=== PATIENT | female | born 1965 | race Caucasian/White ===

== ENCOUNTER 2017-08-28 07:47 | Inpatient (IN) | payer OTHER ==
--- NOTE | 2017-08-25 14:57 | PREOP HP ---
DATE OF SERVICE: 08/28/2017 HISTORY OF PRESENT ILLNESS: The patient is a pleasant 52-year-old woman who has undergone 2 previous surgeries on her lumbar spine, both at L5-S1 on the right. The first was in 05/2016 and the second was a reoperation in 07/2016. Following the second operation, she did well for a few months. Then in 10/2016, she began developing recurrent back pain and right leg pain. She has failed to improve with conservative measures. PAST MEDICAL HISTORY: Hypertension, cervical cancer, chest pain, GERD, hyperlipidemia, fibromyalgia, depression, anxiety, migraines, palpitations. PAST SURGICAL HISTORY: Appendectomy; cholecystectomy; hysterectomy; hemorrhoidectomy; microdiskectomy L5-S1 on the right, 05/2016; microdiskectomy L5-S1 reop on the right, 07/2016. FAMILY HISTORY: Bleeding problems, cancer, diabetes, heart disease, hypertension, migraine headaches. SOCIAL HISTORY: She is employed as a quality control manager. Single. Does not smoke. Drinks alcohol 1-2 times per year. ALLERGIES: To COMPAZINE. CURRENT MEDICATIONS: Clonazepam, Cymbalta, estradiol, lisinopril, Yesenia, Flexeril and Motrin. REVIEW OF SYSTEMS: A 12-point review of systems was obtained and is noncontributory except that mentioned above. PHYSICAL EXAMINATION: NEUROSURGERY EXAMINATION: GENERAL APPEARANCE: Alert, pleasant, in no acute distress. HEAD: Normocephalic and atraumatic. SKIN: Warm and dry. BACK: The incision is well healed. MUSCULOSKELETAL: Lumbar paraspinal muscle bulk is normal, restricted range of motion of lumbar spine, significant tenderness of lower lumbar spine bilaterally. Normal range of motion of the lower extremities bilaterally. EXTREMITIES: No clubbing, cyanosis, or edema. NEUROLOGIC: Alert and oriented x 3, normal recent and remote memory, strength 5/5 in bilateral lower extremities, markedly positive straight leg raising on the right with back and buttock, posterior thigh and leg pain relieved by the Lasegue's maneuver. Straight leg raising on the left is negative. There was decreased sensation in the posterior aspect of her right ankle to light touch. She had normal reflexes in her lower extremities. IMAGING: Reviewed. I reviewed a lumbar myelogram and post-myelogram CT scan. At L5-S1, there is broad-based disk bulging, which is centered to the right and images are consistent with recurrent disk herniation at this level with posterior displacement and compression of the S1 nerve root on the right side. PLAN: She does have pain that remains severe. She has a recurrent disk herniation L5-S1 on the right. She has undergone 2 previous lumbar surgeries at this level. At this point, she needs reoperation lumbar diskectomy with a wide decompression. It should be followup with posterior instrumentation and posterolateral fusion as well as anterior diskectomy and fusion with placement of interbody cage. I discussed with her the surgery and the risks involved as well as the expected postoperative course and she would like to go ahead. We will make the arrangements. JOSSELIN SANDHU MD DR: DUGLAS/ct JOB#: [id number] / [id number]
[~2017-08-28] VITALS: Ht 170.2 cm; Wt 70.8 kg
[2017-08-28] VITALS (8 sets, daily range): BP systolic 104–122; BP diastolic 59–76
[~2017-08-28 07:47] MED LIST: BACITRACIN 50,000 UNIT in IV NORMAL SALINE 1000ML BAG 1,000 ML IRR ONE; BUPIVAC MPF-EPI 0.5%-1:200000 10 ML VIAL. ONE; CHOL500016 PO; CLON0.5T PO; DOCU-109 PO; FLUT9.9S NS; GELATIN SPONGE SIZE 100. ONE; HYDR-2762 PO; HYDROmorphone 2 MG/ML VIAL IV PRN; IV RINGERS,LACTATED 1000ML 1,000 ML IV SCH; KETOROLAC 60 MG/2 ML INJ FOR OR. ONE; LIDOCAINE 1% PF 2 ML VIAL. ID PRN; LINA145C PO; LISI-334 PO; METH-38 PO; METH4TAB2 PO; MORPHINE SULFATE 2 MG/ML DISP.SYRIN. IV PRN; NAPR220C4 PO; ONDANSETRON PF 4 MG/2 ML VIAL. IV PRN; PROM12.553 RC; THROMBIN TOPICAL 20,000 UNIT SPRAY.SYRN KIT TP ONE; fentaNYL PF VIAL 100 MCG/2 ML VIAL IV PRN
[2017-08-28] MEDS ORDERED: VANCOMYCIN 1GM IVPB FOR OMNI 250 ML IV PRN (08:00)
[2017-08-28] MEDS ORDERED: SCOPOLAMINE 1.5MG PATCH. TD ONE ×2 (09:38→10:00)
[2017-08-28] MEDS ORDERED: LIDOCAINE 2% PF Vial for OR 5 ML VIAL. ONE (10:40)
[2017-08-28] MEDS ORDERED: DEXAMETHASONE SOD PHOS 20 MG/5 ML VIAL. ONE (10:40)
[2017-08-28] MEDS ORDERED: PROPOFOL 20 ML IV ONE (10:40)
[2017-08-28] MEDS ORDERED: ONDANSETRON PF 4 MG/2 ML VIAL. ONE (10:40)
[2017-08-28] MEDS ORDERED: PROPOFOL 50 ML IV ONE ×3 (10:57→16:32)
[2017-08-28] MEDS ORDERED: REMIFENTANIL 2 MG VIAL. IV ONE ×2 (10:59→14:50)
[2017-08-28] MEDS ORDERED: 0.9 % SODIUM CHLORIDE 50 ML VIAL. IJ ONE ×2 (10:59→14:51)
[2017-08-28] MEDS ORDERED: fentaNYL PF VIAL 100 MCG/2 ML VIAL ONE (11:00)
[2017-08-28] MEDS ORDERED: MIDAZOLAM HCL/PF 2 MG/2 ML VIAL. ONE (11:00)
[2017-08-28] MEDS ORDERED: FAMOTIDINE 20 MG/2 ML VIAL ONE (11:00)
[2017-08-28] MEDS ORDERED: DESFLURANE > 120 MINUTES IH ONE (11:56)
[2017-08-28] MEDS ORDERED: ePHEDrine PF IN SALINE 50 MG/5 ML DISP.SYRIN IV ONE (12:10)
--- NOTE | 2017-08-28 12:37 | RAD ---
Indication anticipated operative intervention. In anticipation of surgery targeted to the lumbar spine axial images were obtained. Images were reformatted in the coronal and sagittal planes. This cuts were also obtained. Note is made of an MRI examination 10/04/2016. No prior CT imaging of the lumbar spine is available. Imaging of the visualized soft tissues demonstrates a low-density 4 cm mass in the right kidney most compatible with a cyst. Vertebral height is well maintained. There is slight disc space narrowing at L5-S1. Alignment is unremarkable. T12-L1 appears normal. L1-2, L2-3 and L3-4. Normal. No spinal stenosis or significant disc finding in any of these levels is seen. Minimal bulging of the L2-3 disc is noted. There is very slight bulging of the L4-5 disc. There is no spinal stenosis or neural foraminal encroachment. At L5-S1 there is slight encroachment of the right neural foramen. This may reflect scar. The left neural foramen is widely patent. There is largely calcified disc. There is no central spinal stenosis. Right laminectomy defect is noted. IMPRESSION: Postop changes of a laminectomy defect at L5-S1. Mild right foraminal encroachment at L5-S1 may reflect scar. Foraminal disc is not excluded. PQRS Compliance Statement: One or more of the following individualized dose reduction techniques were utilized for this examination: 1. Automated exposure control 2. Adjustment of the mA and/or kV according to patient size 3. Use of iterative reconstruction technique
[2017-08-28] MEDS ORDERED: PHENYLEPHRINE in 0.9% NACL PF 1 MG/10 ML DISP.SYRIN. IV ONE ×2 (13:13→15:47)
[2017-08-28] MEDS ORDERED: HYDROcodone/APAP 7.5/325MG 1 TAB TABLET PO PRN (13:45)
[2017-08-28] MEDS ORDERED: diphenhydrAMINE 50 MG/ML VIAL IV PRN (14:15)
[2017-08-28] MEDS ORDERED: ZOLPIDEM 5 MG TABLET. PO PRN (14:15)
[2017-08-28] MEDS ORDERED: 0.9 % SODIUM CHLORIDE 10 ML DISP.SYRIN. IV PRN (14:15)
[2017-08-28] MEDS ORDERED: diphenhydrAMINE HCL 25 MG CAPSULE PO PRN (14:15)
[2017-08-28] MEDS ORDERED: MAGNESIUM HYDROXIDE 2,400 MG/30 ML ORAL.SUSP. PO PRN (14:15)
[2017-08-28] MEDS ORDERED: CALCIUM CARBONATE 500 MG TAB.CHEW PO PRN (14:15)
[2017-08-28] MEDS ORDERED: fentaNYL PF VIAL 100 MCG/2 ML VIAL IV PRN (14:15)
[2017-08-28] MEDS ORDERED: ONDANSETRON PF 4 MG/2 ML VIAL. IV PRN (14:15)
[2017-08-28] MEDS ORDERED: ACETAMINOPHEN 325 MG TABLET. PO PRN (14:15)
[2017-08-28] MEDS ORDERED: oxyCODONE/APAP 5/325 1 TAB TABLET PO PRN ×2 (14:15)
[2017-08-28] MEDS ORDERED: MAG HYDROX/ALUMINUM HYD/SIMETH 30 ML ORAL.SUSP PO PRN (14:15)
[2017-08-28] MEDS: fentaNYL PF VIAL 100 MCG/2 ML VIAL IV PRN ×3 (17:59→20:14)
--- NOTE | 2017-08-28 18:10 | OP ---
DATE OF SURGERY: 08/28/2017 PREOPERATIVE DIAGNOSES: Recurrent disc herniation, L5-S1 right, with intractable right lumbar radiculopathy. POSTOPERATIVE DIAGNOSES: Recurrent disc herniation, L5-S1 right, with intractable right lumbar radiculopathy. OPERATION PERFORMED: 1. Hemilaminotomy and transfacet decompression of the right S1 nerve root with lumbar microdiscectomy, right L5-S1. 2. Posterior instrumentation, L5-S1. 3. Posterolateral fusion, L5-S1. 4. Anterior discectomy, L5-S1. 5. Anterior interbody fusion L5-S1. The operation was done with EMG monitoring, BrainLAB guidance, fluoroscopy, microscopic dissection. SURGEON: Santiago Sandhu M.D. EMPLOYMENT SPECIALIST/PROGRAM MANAGER: CHANO Dyson, assisted with the surgery. She assisted with the exposure, instrumentation and posterolateral fusion, microdecompression posteriorly as well as the anterior discectomy and fusion. OPERATIVE INDICATIONS: The patient is a very pleasant 52-year-old woman who developed intractable back and right leg pain and was found to have a recurrent disc herniation at L5-S1 on the right. This is her second recurrence, and her pain was severe and intractable and did not respond to conservative measures. At this point, since she has undergone 2 previous lumbar microdisc surgeries, I recommended microdisc decompression as well as an anteroposterior lumbar interbody fusion. I spoke with her about the surgery, the risks, technique and expected postoperative course, and she wished me to go ahead. DESCRIPTION OF PROCEDURE: Following general endotracheal anesthesia, the patient was positioned prone on the Caleb table with lumbar regions prepped and draped in standard fashion. CARLO hose and A-V impulse boots were applied for DVT prophylaxis. The microscope was draped. Fluoroscopy was draped and brought into field. Vancomycin was given prior to surgery 1 gram. Iliac posts were placed into the left iliac crest, and the BrainLAB system was initialized after she had been prepped and draped in standard fashion. Her previous midline incision was reopened and reflected the paraspinal muscles to the left, and using the BrainLAB system plus anatomic landmarks, I placed pedicle screws in L5 and S1 and also excoriated the transverse processes and placed allograft bone at L5-S1. I did aspirate bone marrow from the left iliac crest to mix with the allograft bone. The angelina was placed and the nuts were applied, but the system was not torqued. I then went to the right side, in a similar fashion created an exposure on the right. I cannulated the pedicles of L5-S1 without difficulty. I did excoriate the transverse processes, and I did place bone in the lateral gutters. I then brought in the microscope and using microscopic technique, I used a high speed air drill to enlarge previous hemilaminotomy and then worked out laterally to the region in which there was not dense scarring and exposed the exiting L5 root. I visualized the S1 root and then beneath the root, there was a recurrent disc. I incised the annulus and ligament and teased back multiple disc fragments, entered the disc space at this location and again performed a discectomy and decompressed the S1 root. At this point, then I tilted the table and made an incision in the right flank and then passed the long BrainLAB along with the sleeve down to dock at the lateral aspect of the pedicle of S1 and worked superiorly into the disc space and placed a K-wire to assure myself that the nerve was not in proximity, far lateral to the common dural sac and S1 root and just I was able to pass medially over the top of the far lateral L5 root. I passed the dilator, followed by the working channel through this, and I performed a discectomy at L5-S1 and then scraped away cartilaginous endplate, placed allograft bone into the disc space and then placed the shield to help protect the nerve root and then passed a 9 mm fusion cage, which was packed with allograft bone into the disc space. I did let the cage stay slightly further to the right to ensure that there was excellent distraction on the right side to fully decompress the right L5 and S1 roots. I felt the cage was in excellent position. I irrigated copiously with antibiotic solution and removed the cage csr technician as well as the shield after irrigation. I then tilted the patient back and placed the screws on the right side in L5 and S1 and placed the angelina and did compress slightly while torquing this side, and then, I torqued the contralateral side. During this time, I also excoriated the transverse processes and placed allograft bone in the right gutter. At this point, then I copiously irrigated, fluoroscopic images looked quite good. I removed the BrainLAB system. I closed the wound in layers with absorbable suture. Skin was closed with 4-0 subcuticular stitch. The operation went very well, and the patient was taken uneventfully to recovery room in excellent condition. I was quite pleased with the surgery. SANTIAGO SANDHU MD DR: Claire JOB#: [id number] / [id number] YOLANDA
[2017-08-28] MEDS: DOCUSATE SODIUM 100 MG CAPSULE. PO SCH (20:15)
[2017-08-28] MEDS: METHOCARBAMOL 750 MG TABLET PO SCH ×2 (20:15→21:08)
[2017-08-28] MEDS: POTASSIUM CL 20MEQ D5-0.45NACL 1,000 ML IV SCH (20:16)
[2017-08-28] MEDS: LISINOPRIL 20 MG TABLET PO SCH ×2 (20:22→21:25)
[2017-08-29] MEDS ORDERED: VANCOMYCIN 1 GM in IV NORMAL SALINE 250ML 250 ML IV ONE ×2
[2017-08-29] MEDS: fentaNYL PF VIAL 100 MCG/2 ML VIAL IV PRN (00:56)
[2017-08-29 02:30] VITALS: BP 111/70
[2017-08-29] MEDS: POTASSIUM CL 20MEQ D5-0.45NACL 1,000 ML IV SCH (04:20)
[2017-08-29 06:43] VITALS: BP 92/56
[2017-08-29] MEDS: METHOCARBAMOL 750 MG TABLET PO SCH (08:04)
[2017-08-29] MEDS: DOCUSATE SODIUM 100 MG CAPSULE. PO SCH (08:04)
[2017-08-29 08:10] VITALS: BP 113/76
[2017-08-29] MEDS ORDERED: CHOLECALCIFEROL (VITAMIN D3) 5,000 UNIT CAPSULE PO SCH (09:00)
[2017-08-29] MEDS ORDERED: LINACLOTIDE 145 MCG CAPSULE. PO SCH (09:00)
--- NOTE | 2017-08-29 09:35 | DISCH ---
DISCHARGE INSTRUCTIONS Condition on Discharge Condition on Discharge: Stable Activity After Discharge Activity Instructions for Disc: Resume previous activity, Activity as tolerated Bathing Instructions: Shower-keep dressing dry Lifting Instructions after Dis: No heavy lifting, No pulling or pushing, Do not lift >10 pounds Driving Instructions after Dis: No driving for 2 weeks Diet after Discharge Additional Diet Restrictions: resume home diet Wound Incision Care Wound/Incision Care: Ice to area for comfort Other wound/incision instructi: may remove dressing in 48 hrs if dry then may shower- no soaking Contacting the after DC Call your doctor for: Concerns you may have Follow-Up Follow up with: Dr. Moy's nurse in 2 weeks [phone] DAMIAN CARRANZA APRN Aug 29, 2017 09:35
[2017-08-29] MEDS ORDERED: PROMETHAZINE 12.5 MG TABLET. PO ONE (09:45)
[2017-08-29] MEDS ORDERED: PROMETHAZINE 25 MG SUPP.RECT. PR ONE (09:45)
[2017-08-29] MEDS ORDERED: PROM12.56 PO (10:14)
--- NOTE | 2017-08-29 10:22 | DS ---
DATE OF DISCHARGE: 08/29/2017 DISCHARGE DIAGNOSES: Recurrent disk herniation, L5-S1, right with intractable right lumbar radiculopathy. OPERATIONS PERFORMED: 1. Hemilaminotomy and transfacet decompression of the right S1 nerve root with lumbar microdiskectomy, right L5-S1. 2. Posterior instrumentation, L5-S1. 3. Posterolateral fusion, L5-S1. 4. Anterior diskectomy, L5-S1. 5. Anterior interbody fusion L5-S1. HISTORY OF PRESENT ILLNESS: The patient is a pleasant 52-year-old woman who developed intractable back and right leg pain and was found to have recurrent disk herniation at L5-S1 on the right. This is her second recurrence and her pain was severe and intractable and did not respond to conservative measures. She had undergone 2 previous lumbar micro-disk surgeries and I recommended a microdiskectomy decompression as well as anterior and posterior lumbar interbody fusion. She understood the surgery and the risk and wished to proceed. HOSPITAL COURSE: She was admitted to the floor postoperatively where she did well. She is up ambulating in the room and in the halls. Physical therapy has been initiated and she has been instructed regarding her activities. Her right leg pain has resolved. Her pain is well controlled and she is in good condition to discharge home. DISCHARGE MEDICATIONS: She will resume her medications per the MRAD. DISCHARGE INSTRUCTIONS: She was instructed regarding incision care, activity restrictions and expectations for the next several weeks. She will follow up in our office in 2 weeks. She understands to call with any questions or concerns. JOSSELIN SANDHU MD DR: HUGO/ct JOB#: [id number] / [id number]
--- NOTE | 2017-08-30 13:42 | PATHOLOGY ---
PATHOLOGY REPORT * * * * * * * * FINAL DIAGNOSIS: Segments of fibrocartilaginous tissue and bone, lumbar disc and decompression: - Degenerative changes of fibrocartilaginous tissue. (JPM:theresa; 08/30/2017) COMMENT: There is no evidence of an acute inflammatory process or malignancy. REPORT ELECTRONICALLY SIGNED BY: Satya Ngo M.D. DATE/TIME: 08/30/2017 13:42 * * * * * * * * GROSS PATHOLOGY: Received in formalin labeled "Monik Do, lumbar disc and decompression," are multiple segments of mario, rubbery, grated tissue measuring 4.4 x 2.4 x 0.5 cm in aggregate dimensions with admixed calcified tissue. The tissue is submitted representatively in cassette A1, following decalcification. (SDY; 08/29/2017) INITIAL CPT CODE(S): A; 35310, 80050 Professional services [place] [address] Technical services performed by [facility] at [address] [place] [address]. SPECIMEN(S) RECEIVED: A.Lumbar disc and decompression CLINICAL HISTORY: Lumbar herniated disc with radiculopathy PATIENT: MONIK DO /AGE: 706/05/1965 (Age: 52) PATIENT #: [id number] ALT CASE #: SPECIMEN COLLECTION DATE: 08/29/2017 SPECIMEN RECEIVED DATE: 08/29/2017 [facility] - [address] [place] [address] - PHONE: [phone] * * * END OF REPORT * * *
== END 2017-08-29 10:45 | disposition home or self-care (01) | DRG 455 ==
LOC: OPSVCIP 07:47 → 4 SOUTHEST 18:49
PROVIDERS: ADMIT Neurological Surgery; ATTEND Neurological Surgery
PROC: 4A11X4G Monitoring of Peripheral Nervous Electrical Activity, Intraoperative, External Approach (ICD-10-PCS; 2017-08-28)
PROC: 0SG3071 Fusion of Lumbosacral Joint with Autologous Tissue Substitute, Posterior Approach, Posterior Column, Open Approach (ICD-10-PCS; 2017-08-28)
PROC: 0SG30A0 Fusion of Lumbosacral Joint with Interbody Fusion Device, Anterior Approach, Anterior Column, Open Approach (ICD-10-PCS; 2017-08-28)
PROC: 07DR3ZZ Extraction of Iliac Bone Marrow, Percutaneous Approach (ICD-10-PCS; 2017-08-28)
PROC: 0SB40ZZ Excision of Lumbosacral Disc, Open Approach (ICD-10-PCS; principal; 2017-08-28 10:30)
DX: M51.17 Intervertebral disc disorders with radiculopathy, lumbosacral region (principal); I10 Essential (primary) hypertension; F32.9 Major depressive disorder, single episode, unspecified; E78.5 Hyperlipidemia, unspecified; F41.9 Anxiety disorder, unspecified; G43.909 Migraine, unspecified, not intractable, without status migrainosus; K21.9 Gastro-esophageal reflux disease without esophagitis; M79.7 Fibromyalgia; Z82.49 Family history of ischemic heart disease and other diseases of the circulatory system; Z85.41 Personal history of malignant neoplasm of cervix uteri; Z83.3 Family history of diabetes mellitus
CPT/HCPCS: 36415; 72131; 76000; 86850; 86900; 86901; 88304; 88311; C1713; J1100; J1170; J1885; J2250; J2370; J2405; J2704; J3010; J3370; J3490; J7030; J7050; J7120; Q0169; S0028; 97530; J2001

== ENCOUNTER 2017-09-03 09:41 | Inpatient (IN) | payer OTHER ==
[~2017-09-03] VITALS: Ht 170.2 cm; Wt 73.1 kg
[~2017-09-03 09:41] MED LIST changes: -BACITRACIN 50,000 UNIT in IV NORMAL SALINE 1000ML BAG 1,000 ML IRR ONE; -BUPIVAC MPF-EPI 0.5%-1:200000 10 ML VIAL. ONE; -GELATIN SPONGE SIZE 100. ONE; -HYDROmorphone 2 MG/ML VIAL IV PRN; -IV RINGERS,LACTATED 1000ML 1,000 ML IV SCH; -KETOROLAC 60 MG/2 ML INJ FOR OR. ONE; -LIDOCAINE 1% PF 2 ML VIAL. ID PRN; -MORPHINE SULFATE 2 MG/ML DISP.SYRIN. IV PRN; -ONDANSETRON PF 4 MG/2 ML VIAL. IV PRN; +PROM12.56 PO; -THROMBIN TOPICAL 20,000 UNIT SPRAY.SYRN KIT TP ONE; -fentaNYL PF VIAL 100 MCG/2 ML VIAL IV PRN
--- NOTE | 2017-09-03 09:44 | PHYS DOC ---
Adult General Chief Complaint Chief Complaint: POST-OP PROBLEM HPI HPI Patient is a 52 year old female who presents with lower extremity burning type sensation from the mid calf on the anterior top aspect of her calf down to her foot. He states symptoms started 2 days ago on the been getting worse. She states it feels somewhat better when she tried to get up and walk. She states his pain also radiates up around the back of her leg into her detox. She states she's been taking her narcotic pain medicine, she had an on Motrin yesterday after she talked to Molly with Dr. Elizabeth's office. She went taken Phenergan. She denies any weakness in her leg. She does states that since she's had surgery got out on 29 August she has to urinate lobe and then stop and then pushed to urinate the rest of it. DATE OF DISCHARGE: 08/29/2017 DISCHARGE DIAGNOSES: Recurrent disk herniation, L5-S1, right with intractable right lumbar radiculopathy. OPERATIONS PERFORMED: 1. Hemilaminotomy and transfacet decompression of the right S1 nerve root with lumbar microdiskectomy, right L5-S1. 2. Posterior instrumentation, L5-S1. 3. Posterolateral fusion, L5-S1. 4. Anterior diskectomy, L5-S1. 5. Anterior interbody fusion L5-S1. Review of Systems Review of Systems Constitutional: Denies fever or chills Eyes: Denies change in visual acuity, redness, or eye pain HENT: Denies nasal congestion or sore throat Respiratory: Denies cough or shortness of breath Cardiovascular: No additional information not addressed in HPI GI: Denies abdominal pain, nausea, vomiting, bloody stools or diarrhea : Denies dysuria or hematuria Musculoskeletal: Denies back pain or joint pain Integument: Denies rash or skin lesions Neurologic: Denies headache, focal weakness, positive for pins and needles the right lower extremity Endocrine: Denies polyuria or polydipsia Current Medications Current Medications Current Medications Medications (Trade) Dose Ordered Sig/Js Start Time Stop Time Status Last Admin Dose Admin Fentanyl Citrate (Fentanyl 2ml Vial) 50 mcg PRN Q15MIN PRN 09/03/17 10:30 09/03/17 14:14 DC 09/03/17 11:41 50 MCG Ondansetron HCl (Zofran) 4 mg 1X ONCE 09/03/17 10:30 09/03/17 10:31 DC Promethazine HCl 12.5 mg/Sodium Chloride 50.5 ml @ 151.5 mls/ hr PRN Q6HRS PRN 09/03/17 11:00 09/05/17 08:45 151.5 MLS/HR Allergies Allergies Allergies Coded Allergies Type Severity Reaction Last Updated Verified miconazole Allergy Intermediate 08/28/17 Yes prochlorperazine Allergy Intermediate TOLERATES PROMETHAZINE 08/29/17 Yes sulfamethoxazole Allergy Intermediate 08/28/17 Yes tioconazole Allergy Intermediate 08/29/17 Yes trimethoprim Allergy Intermediate 08/28/17 Yes zolpidem Adverse Reaction Intermediate 08/28/17 Yes Physical Exam Physical Exam Constitutional: Well developed, well nourished, no acute distress, non-toxic appearance. HENT: Normocephalic, atraumatic, bilateral external ears normal, oropharynx moist, no oral exudates, nose normal. Eyes: PERRLA, EOMI, conjunctiva normal, no discharge. Neck: Normal range of motion, no tenderness, supple, no stridor. Cardiovascular:Heart rate regular rhythm, no murmur Lungs & Thorax: Bilateral breath sounds clear to auscultation Abdomen: Bowel sounds normal, soft, no tenderness, no masses, no pulsatile masses. Skin: Warm, dry, no erythema, no rash. Back: No tenderness, no CVA tenderness. Extremities: No tenderness, no cyanosis, no clubbing, ROM intact, no edema. Dorsal pedis pulse 2+ right lower extremity, with flexion of the hip and extension of the knee she does complain of discomfort in the posterior aspect of her leg and into her buttocks, no weakness appreciated in her right lower extremity. Neurologic: Alert and oriented X 3, normal motor function. Psychologic: Affect normal, judgement normal, mood normal. Current Patient Data Vital Signs Vital Signs Date Time Temp Pulse Resp B/P (MAP) Pulse Ox O2 Delivery O2 Flow Rate FiO2 09/03/17 10:43 18 09/03/17 10:00 97.6 90 99 Room Air 97.6 Lab Values Laboratory Tests Test 09/03/17 10:00 09/03/17 10:33 Urine Collection Type Void Urine Color Yellow Urine Clarity Clear Urine pH 6.5 Urine Specific [place] 1.010 Urine Protein Negative mg/dL (NEG-TRACE) Urine Glucose (UA) Negative mg/dL (NEG) Urine Ketones (Stick) Negative mg/dL (NEG) Urine Blood Negative (NEG) Urine Nitrite Negative (NEG) Urine Bilirubin Negative (NEG) Urine Urobilinogen Dipstick 0.2 mg/dL (0.2 mg/dL) Urine Leukocyte Esterase Negative (NEG) Urine RBC Occ /HPF (0-2) Urine WBC 1-4 /HPF (0-4) Urine Squamous Epithelial Cells Few /LPF Urine Bacteria Moderate /HPF (0-FEW) White Blood Count 6.0 x10^3/uL (4.0-11.0) Red Blood Count 4.11 x10^6/uL (3.50-5.40) Hemoglobin 12.7 g/dL (12.0-15.5) Hematocrit 36.5 % (36.0-47.0) Mean Corpuscular Volume 89 fL (79-100) Mean Corpuscular Hemoglobin 31 pg (25-35) Mean Corpuscular Hemoglobin Concent 35 g/dL (31-37) Red Cell Distribution Width 12.3 % (11.5-14.5) Platelet Count 368 x10^3/uL (140-400) Neutrophils (%) (Auto) 74 % (31-73) H Lymphocytes (%) (Auto) 14 % (24-48) L Monocytes (%) (Auto) 6 % (0-9) Eosinophils (%) (Auto) 6 % (0-3) H Basophils (%) (Auto) 0 % (0-3) Neutrophils # (Auto) 4.4 x10^3uL (1.8-7.7) Lymphocytes # (Auto) 0.8 x10^3/uL (1.0-4.8) L Monocytes # (Auto) 0.3 x10^3/uL (0.0-1.1) Eosinophils # (Auto) 0.3 x10^3/uL (0.0-0.7) Basophils # (Auto) 0.0 x10^3/uL (0.0-0.2) Prothrombin Time 12.2 SEC (11.7-14.0) Prothrombin Time INR 1.0 (0.8-1.1) Sodium Level 141 mmol/L (136-145) Potassium Level 3.9 mmol/L (3.5-5.1) Chloride Level 105 mmol/L (98-107) Carbon Dioxide Level 28 mmol/L (21-32) Anion Gap 8 (6-14) Blood Urea Nitrogen 12 mg/dL (7-20) Creatinine 0.8 mg/dL (0.6-1.0) Estimated GFR (Cockcroft-Gault) 74.7 Glucose Level 100 mg/dL (70-99) H Calcium Level 9.0 mg/dL (8.5-10.1) Magnesium Level 1.9 mg/dL (1.8-2.4) Total Bilirubin 0.5 mg/dL (0.2-1.0) Direct Bilirubin 0.1 mg/dL (0.0-0.2) Aspartate Amino Transferase (AST) 27 U/L (15-37) Alanine Aminotransferase (ALT) 42 U/L (14-59) Alkaline Phosphatase 70 U/L (46-116) Creatine Kinase 117 U/L (26-192) Creatine Kinase MB (Mass) 0.5 ng/mL (0.0-3.6) Creatine Kinase MB Relative Index 0.4 % (0-4) Total Protein 7.3 g/dL (6.4-8.2) Albumin 3.5 g/dL (3.4-5.0) Laboratory Tests 09/03/17 10:33 Laboratory Tests 09/03/17 10:33 Microbiology 09/03/17 Urine Culture - Final, Complete 09/03/17 Urine Culture Result 1 (MEGHANA) - Final, Complete 09/03/17 Antimicrobic Susceptibility - Final, Complete EKG EKG [] Radiology/Procedures Radiology/Procedures [] Impressions: leg pain Course & Med Decision Making Course & Med Decision Making Pertinent Labs and Imaging studies reviewed. (See chart for details) I spoke with Molly with Dr. Elizabeth's office who is okay with the patient being admitted and she will order a CT scan of her back. She is informed me that she's had similar episodes of this neuropathy and neurogenic pain after a week postop. Patient's will be admitted to hospitalist with consultation to Dr. Elizabeth. I did order a DVT scan of her right lower extremity to rule out DVT. Dragon Disclaimer Dragon Disclaimer This electronic medical record was generated, in whole or in part, using a voice recognition dictation system. Departure Departure Impression: Primary Impression: Leg pain, right Disposition: ADMITTED INPATIENT Admitting Physician: Marifer Stone Condition: STABLE Referrals: SU WOODALL (PCP) ORION MCKINNEY MD Sep 03, 2017 09:44
[2017-09-03] MEDS ORDERED: ONDANSETRON PF 4 MG/2 ML VIAL. IV ONE (10:30)
[2017-09-03] MEDS: fentaNYL PF VIAL 100 MCG/2 ML VIAL IV PRN ×2 (10:43→11:41)
[2017-09-03 10:44] LABS: BASO % 0 % (0-3); EOS % 6 % (0-3); HEMATOCRIT 36.5 % (36.0-47.0); HEMOGLOBIN 12.7 g/dL (12.0-15.5); LYMPH # 0.8 x10^3/uL (1.0-4.8); LYMPH % 14 % (24-48); MEAN CORPUSCULAR HEMOGLOBIN 31 pg (25-35); MEAN CORPUSCULAR HGB CONC 35 g/dL (31-37); MEAN CORPUSCULAR VOLUME 89 fL (79-100); MONO % 6 % (0-9); NEUT % 74 % (31-73); PLATELET COUNT 368 x10^3/uL (140-400); RED BLOOD COUNT 4.11 x10^6/uL (3.50-5.40); RED CELL DISTRIBUTION WIDTH 12.3 % (11.5-14.5)
[2017-09-03 10:52] LABS: CREATININE 0.8 mg/dL (0.6-1.0); GFR 74.7; POTASSIUM 3.9 mmol/L (3.5-5.1)
[2017-09-03 10:56] LABS: PROTHROMBIN TIME PATIENT 12.2 SEC (11.7-14.0)
[2017-09-03 10:58] LABS: ALBUMIN 3.5 g/dL (3.4-5.0); DIRECT BILIRUBIN 0.1 mg/dL (0.0-0.2); MAGNESIUM 1.9 mg/dL (1.8-2.4); TOTAL BILIRUBIN 0.5 mg/dL (0.2-1.0); TOTAL PROTEIN 7.3 g/dL (6.4-8.2)
[2017-09-03 11:00] LABS: BACTERIA,URINE MODERATE /HPF (0-FEW); BILIRUBIN,URINE NEGATIVE (NEG); GLUCOSE,URINE NEGATIVE (NEG); NITRITE,URINE NEGATIVE (NEG); PH,URINE 6.5; PROTEIN,URINE NEGATIVE (NEG-TRACE); RBC,URINE OCC /HPF (0-2); SQUAMOUS EPITHELIAL CELL,UR FEW /LPF; UROBILINOGEN,URINE 0.2 mg/dL (0.2 mg/dL)
[2017-09-03 11:06] LABS: CKMB MASS 0.5 ng/mL (0.0-3.6)
--- NOTE | 2017-09-03 11:30 | RAD ---
CT study of the lumbar spine without contrast History: Radiculopathy. Back pain. Leg pain. Status post lumbar fusion on August 28, 2017. Comparison: August 28, 2017. Technique: Noncontrast helical CT scanning of the lumbar spine was performed. Multiplanar 2-D reconstructions were generated. PQRS Compliance Statement: One or more of the following individualized dose reduction techniques were utilized for this examination: 1. Automated exposure control 2. Adjustment of the mA and/or kV according to patient size 3. Use of iterative reconstruction technique Findings: No compression fracture or discitis or osteolytic process or anterolisthesis is seen. Transpedicular screws are seen bilaterally at L5 and S1. Interbody disc space expanding fusion device of L5-S1 has been placed. Laminectomy defect is seen at L5-S1. There is narrowing of the right neural foramen at L5-S1 which may be due to epidural fibrosis or disc osteophyte complex. This was seen previously. The vertical dimension of this neural foramen has been improved due to the expanding fusion device at the L5-S1 disc space. No focal disc protrusion or spinal canal stenosis or neural foraminal narrowing is seen at any other level of the lumbar spine. The transverse processes are intact. A cyst of the medial aspect of the right kidney is incidentally noted. IMPRESSION: Since the previous study, the patient has had L5-S1 fusion. Alignment is normal. No discitis or osteolytic process evident. No acute compression fracture. Narrowing of the right neural foramen at L5-S1.
[2017-09-03] MEDS: PROMETHAZINE 12.5 MG in IV NORMAL SALINE 50ML 50 ML IV PRN (11:38)
[2017-09-03] MEDS ORDERED: HYDROcodone/APAP 7.5/325MG 1 TAB TABLET PO PRN (12:00)
[2017-09-03] MEDS ORDERED: PROMETHAZINE 12.5 MG TABLET. PO PRN (12:00)
[2017-09-03] MEDS ORDERED: MAGNESIUM HYDROXIDE 2,400 MG/30 ML ORAL.SUSP. PO PRN (12:00)
[2017-09-03] MEDS ORDERED: oxyCODONE/APAP 10/325 1 TAB TABLET PO PRN (12:00)
[2017-09-03] MEDS ORDERED: fentaNYL PF VIAL 100 MCG/2 ML VIAL IV PRN (12:15)
[2017-09-03] MEDS ORDERED: HYDROmorphone 2 MG/ML VIAL IVP PRN (12:30)
--- NOTE | 2017-09-03 12:34 | RAD ---
Right leg venous Doppler study: Clinical indications: Right leg swelling and pain. Findings: Duplex sonography (including ball scale evaluation and color flow and waveform spectral analysis) of the proximal aspect of the greater saphenous vein and proximal aspect of the profunda femoral vein and the entire length of the common femoral and superficial femoral and popliteal veins and the tibioperoneal trunk and the proximal aspect of the posterior tibial and peroneal veins of the right leg was performed. Normal compressibility, augmentation of color Doppler flow after calf compression, and respiratory variation of Doppler flow is seen. Thus, there are no sonographic findings of deep venous thrombosis within these veins. Impression: There are no sonographic findings of deep venous thrombosis within the veins discussed above of the right lower extremity.
[2017-09-03] MEDS ORDERED: DOCUSATE SODIUM 100 MG CAPSULE. PO SCH (13:00)
[2017-09-03 13:10] VITALS: BP 128/86
[2017-09-03] MEDS: LINACLOTIDE 145 MCG CAPSULE. PO SCH (14:14)
[2017-09-03] MEDS: CHOLECALCIFEROL (VITAMIN D3) 5,000 UNIT CAPSULE PO SCH (14:14)
[2017-09-03] MEDS: METHOCARBAMOL 750 MG TABLET PO SCH ×3 (14:14→22:08)
[2017-09-03] MEDS: POLYETHYLENE GLYCOL 3350 17 GM PACKET. PO SCH (14:15)
--- NOTE | 2017-09-03 14:28 | PDOC1 ---
History and Physical Date of Admission Date of Admission DATE: 09/03/17 TIME: 14:18 Identification/Chief Complaint Chief Complaint back pain post sx 8 days ago Problems: Source Source: Caregiver, Chart review, Patient History of Present Illness History of Present Illness 52 y.o female has had 3 back sx total since Nov 2015 for back pain and disc bulges, last one was 8 days ag by our [facility] service, on robaxin and other pain meds at home, no relief, no sleep bec of pain, Also new one is PINS AND NEEDLES sensation from tip of her toes Rt side to mid thigh, never happened before, THis is more bothersome than her back,. Always on constipated side, Linzess makes he have blow outs. NO saddle anesthesia or bowel/bladder incontinence. Metal back inserted last sx? Neu[facility] aware of admission and ordered CT which shows normal alignment and post op changes, She is wiling to have mRI to check nerves if her back plate is MRI compatible. RN friend at bedside and they have elder djusting struggling with pain meds at home to no avail hence this admit, Agreeable to physiatry consult too,. Past Medical History Musculoskeletal: low back pain Past Surgical History Past Surgical History: Other (back sx x 3) Family History Family History: No Significant Social History Smoke: No ALCOHOL: none Drugs: None Current Medications Current Medications Current Medications Fentanyl Citrate (Fentanyl 2ml Vial) 50 mcg PRN Q15MIN PRN IV PAIN GREATER THAN 3/10 Last administered on 09/03/17 11:41; Start 09/03/17 at 10:30; Stop 09/03/17 at 14:14; Status DC Ondansetron HCl (Zofran) 4 mg 1X ONCE IV ; Start 09/03/17 at 10:30; Stop at 10:31; Status DC Promethazine HCl 12.5 mg/Sodium Chloride 50.5 ml @ 151.5 mls/ hr PRN Q6HRS PRN IV NAUSEA/VOMITING Last administered on 09/03/17 11:38; Start 09/03/17 at 11:00 Fentanyl Citrate (Fentanyl 2ml Vial) 50 mcg PRN Q2HR PRN IV PAIN; Start at 12:00 Ketorolac Tromethamine (Toradol) 30 mg PRN Q6HRS PRN IV PAIN; Start 09/03/17 at 12:00; Stop 09/08/17 at 11:59 Acetaminophen/ Hydrocodone Bitart (Lortab 7.5/325) 2 tab PRN Q6HRS PRN PO PAIN ; Start 09/03/17 at 12:00 Linaclotide (Linzess) 145 mcg DAILY PO Last administered on 09/03/17 14:14; Start 09/03/17 at 13:00 Methocarbamol (Robaxin) 750 mg QID PO Last administered on 09/03/17 14:14; Start 09/03/17 at 13:00 Promethazine HCl (Phenergan) 12.5 mg PRN Q6HRS PRN PO NAUSEA; Start 09/03/17 at 12:00 Vitamin D (Vitamin D3) 5,000 unit DAILY PO Last administered on 09/03/17 14: 14; Start 09/03/17 at 13:00 Lisinopril (Prinivil) 20 mg HS PO ; Start 09/03/17 at 21:00 Oxycodone/ Acetaminophen (Percocet 10/325) 1 tab PRN Q4HRS PRN PO pain; Start 09/03/17 at 12:00 Oxycodone/ Acetaminophen (Percocet 5/325) 1 tab PRN Q4HRS PRN PO PAIN; Start 09/03/17 at 12:00 Magnesium Hydroxide (Milk Of Magnesia) 2,400 mg PRN DAILY PRN PO CONSTIPATION; Start 09/03/17 at 12:00 Docusate Sodium (Colace) 100 mg DAILY PO ; Start 09/03/17 at 13:00; Stop 09/03 at 14:14; Status DC Polyethylene Glycol (miraLAX PACKET) 17 gm DAILY PO Last administered on 14:15; Start 09/03/17 at 13:00 Fentanyl Citrate (Fentanyl 2ml Vial) 50 mcg PRN Q2HR PRN IV PAIN; Start at 12:15; Stop 09/04/17 at 12:14 Hydromorphone HCl (Dilaudid) 1 mg PRN Q4HRS PRN IVP PAIN Last administered on 09/03/17 12:45; Start 09/03/17 at 12:30; Stop 09/03/17 at 14:14; Status DC Docusate Sodium (Colace) 100 mg BID PO ; Start 09/03/17 at 21:00 Hydromorphone HCl (Dilaudid) 1 mg PRN Q3HRS PRN IVP PAIN; Start 09/03/17 at 14 :15 Naproxen (Naprosyn) 500 mg BIDWMEALS PO ; Start 09/03/17 at 17:00 Active Scripts Active Robaxin-750 (Methocarbamol) 750 Mg Tablet 750 Mg PO QID Hydrocodone-Apap 7.5-325 (Hydrocodone Bit/Acetaminophen) 1 Each Tablet 2 Tab PO PRN Q6HRS PRN Reported Promethazine Hcl 12.5 Mg Tablet 1 Tab PO Q6HRS PRN Vitamin D3 (Cholecalciferol (Vitamin D3)) 5,000 Unit Tablet 5,000 Unit PO DAILY Linzess (Linaclotide) 145 Mcg Capsule 145 Mcg PO Lisinopril 20 Mg Tablet 1 Tab PO HS Allergies Allergies: Coded Allergies: miconazole (Verified Allergy, Intermediate, 08/28/17) prochlorperazine (Verified Allergy, Intermediate, TOLERATES PROMETHAZINE, 08/29/17) sulfamethoxazole (Verified Allergy, Intermediate, 08/28/17) tioconazole (Verified Allergy, Intermediate, 08/29/17) trimethoprim (Verified Allergy, Intermediate, 08/28/17) zolpidem (Verified Adverse Reaction, Intermediate, 08/28/17) BECOME CONFUSED "CRAZY" ROS Review of System as per HPI, all else is neg except for insomnia from back pain Physical Exam General: Alert, Oriented X3, Cooperative, No acute distress HEENT: Atraumatic, PERRLA, EOMI Lungs: Clear to auscultation, Normal air movement Heart: S1S2, RRR, no thrills, no rubs, no gallops Cardiovascular: S1, S2 Breasts: Normal, Rt breast nml w/o mass, Lt breast nml w/o mass, Nipples normal Abdomen: Normal bowel sounds, Soft, No tenderness, No hepatosplenomegaly, No masses Rectal Exam: not examined PELVIC: Nml ext genitalia Extremities: Other (hypersensitive feet/toes, tender to light touch) Skin: No rashes, No breakdown, No significant lesion Neuro: Normal gait, Normal speech, Strength at 5/5 X4 ext, Normal tone, Sensation intact, Cranial nerves 3-12 NL, Reflexes 2+ Vitals Vitals Vital Signs Date Time Temp Pulse Resp B/P (MAP) Pulse Ox O2 Delivery O2 Flow Rate FiO2 09/03/17 12:45 16 09/03/17 10:00 97.6 90 99 Room Air 97.6 Labs Labs Laboratory Tests Test 09/03/17 10:00 09/03/17 10:33 Urine Collection Type Void Urine Color Yellow Urine Clarity Clear Urine pH 6.5 Urine Specific [place] 1.010 Urine Protein Negative mg/dL (NEG-TRACE) Urine Glucose (UA) Negative mg/dL (NEG) Urine Ketones (Stick) Negative mg/dL (NEG) Urine Blood Negative (NEG) Urine Nitrite Negative (NEG) Urine Bilirubin Negative (NEG) Urine Urobilinogen Dipstick 0.2 mg/dL (0.2 mg/dL) Urine Leukocyte Esterase Negative (NEG) Urine RBC Occ /HPF (0-2) Urine WBC 1-4 /HPF (0-4) Urine Squamous Epithelial Cells Few /LPF Urine Bacteria Moderate /HPF (0-FEW) White Blood Count 6.0 x10^3/uL (4.0-11.0) Red Blood Count 4.11 x10^6/uL (3.50-5.40) Hemoglobin 12.7 g/dL (12.0-15.5) Hematocrit 36.5 % (36.0-47.0) Mean Corpuscular Volume 89 fL (79-100) Mean Corpuscular Hemoglobin 31 pg (25-35) Mean Corpuscular Hemoglobin Concent 35 g/dL (31-37) Red Cell Distribution Width 12.3 % (11.5-14.5) Platelet Count 368 x10^3/uL (140-400) Neutrophils (%) (Auto) 74 % (31-73) Lymphocytes (%) (Auto) 14 % (24-48) Monocytes (%) (Auto) 6 % (0-9) Eosinophils (%) (Auto) 6 % (0-3) Basophils (%) (Auto) 0 % (0-3) Neutrophils # (Auto) 4.4 x10^3uL (1.8-7.7) Lymphocytes # (Auto) 0.8 x10^3/uL (1.0-4.8) Monocytes # (Auto) 0.3 x10^3/uL (0.0-1.1) Eosinophils # (Auto) 0.3 x10^3/uL (0.0-0.7) Basophils # (Auto) 0.0 x10^3/uL (0.0-0.2) Prothrombin Time 12.2 SEC (11.7-14.0) Prothromb Time International Ratio 1.0 (0.8-1.1) Sodium Level 141 mmol/L (136-145) Potassium Level 3.9 mmol/L (3.5-5.1) Chloride Level 105 mmol/L (98-107) Carbon Dioxide Level 28 mmol/L (21-32) Anion Gap 8 (6-14) Blood Urea Nitrogen 12 mg/dL (7-20) Creatinine 0.8 mg/dL (0.6-1.0) Estimated GFR (Cockcroft-Gault) 74.7 Glucose Level 100 mg/dL (70-99) Calcium Level 9.0 mg/dL (8.5-10.1) Magnesium Level 1.9 mg/dL (1.8-2.4) Total Bilirubin 0.5 mg/dL (0.2-1.0) Direct Bilirubin 0.1 mg/dL (0.0-0.2) Aspartate Amino Transf (AST/SGOT) 27 U/L (15-37) Alanine Aminotransferase (ALT/SGPT) 42 U/L (14-59) Alkaline Phosphatase 70 U/L (46-116) Creatine Kinase 117 U/L (26-192) Creatine Kinase MB (Mass) 0.5 ng/mL (0.0-3.6) Creatine Kinase MB Relative Index 0.4 % (0-4) Total Protein 7.3 g/dL (6.4-8.2) Albumin 3.5 g/dL (3.4-5.0) Laboratory Tests Test 09/03/17 10:00 09/03/17 10:33 Urine Collection Type Void Urine Color Yellow Urine Clarity Clear Urine pH 6.5 Urine Specific [place] 1.010 Urine Protein Negative mg/dL (NEG-TRACE) Urine Glucose (UA) Negative mg/dL (NEG) Urine Ketones (Stick) Negative mg/dL (NEG) Urine Blood Negative (NEG) Urine Nitrite Negative (NEG) Urine Bilirubin Negative (NEG) Urine Urobilinogen Dipstick 0.2 mg/dL (0.2 mg/dL) Urine Leukocyte Esterase Negative (NEG) Urine RBC Occ /HPF (0-2) Urine WBC 1-4 /HPF (0-4) Urine Squamous Epithelial Cells Few /LPF Urine Bacteria Moderate /HPF (0-FEW) White Blood Count 6.0 x10^3/uL (4.0-11.0) Red Blood Count 4.11 x10^6/uL (3.50-5.40) Hemoglobin 12.7 g/dL (12.0-15.5) Hematocrit 36.5 % (36.0-47.0) Mean Corpuscular Volume 89 fL (79-100) Mean Corpuscular Hemoglobin 31 pg (25-35) Mean Corpuscular Hemoglobin Concent 35 g/dL (31-37) Red Cell Distribution Width 12.3 % (11.5-14.5) Platelet Count 368 x10^3/uL (140-400) Neutrophils (%) (Auto) 74 % (31-73) Lymphocytes (%) (Auto) 14 % (24-48) Monocytes (%) (Auto) 6 % (0-9) Eosinophils (%) (Auto) 6 % (0-3) Basophils (%) (Auto) 0 % (0-3) Neutrophils # (Auto) 4.4 x10^3uL (1.8-7.7) Lymphocytes # (Auto) 0.8 x10^3/uL (1.0-4.8) Monocytes # (Auto) 0.3 x10^3/uL (0.0-1.1) Eosinophils # (Auto) 0.3 x10^3/uL (0.0-0.7) Basophils # (Auto) 0.0 x10^3/uL (0.0-0.2) Prothrombin Time 12.2 SEC (11.7-14.0) Prothromb Time International Ratio 1.0 (0.8-1.1) Sodium Level 141 mmol/L (136-145) Potassium Level 3.9 mmol/L (3.5-5.1) Chloride Level 105 mmol/L (98-107) Carbon Dioxide Level 28 mmol/L (21-32) Anion Gap 8 (6-14) Blood Urea Nitrogen 12 mg/dL (7-20) Creatinine 0.8 mg/dL (0.6-1.0) Estimated GFR (Cockcroft-Gault) 74.7 Glucose Level 100 mg/dL (70-99) Calcium Level 9.0 mg/dL (8.5-10.1) Magnesium Level 1.9 mg/dL (1.8-2.4) Total Bilirubin 0.5 mg/dL (0.2-1.0) Direct Bilirubin 0.1 mg/dL (0.0-0.2) Aspartate Amino Transf (AST/SGOT) 27 U/L (15-37) Alanine Aminotransferase (ALT/SGPT) 42 U/L (14-59) Alkaline Phosphatase 70 U/L (46-116) Creatine Kinase 117 U/L (26-192) Creatine Kinase MB (Mass) 0.5 ng/mL (0.0-3.6) Creatine Kinase MB Relative Index 0.4 % (0-4) Total Protein 7.3 g/dL (6.4-8.2) Albumin 3.5 g/dL (3.4-5.0) VTE Prophylaxis Ordered VTE Prophylaxis Devices: Yes VTE Pharmacological Prophylaxi: Yes Assessment/Plan Assessment/Plan 1. BAck pain post op site, normal alignment and no acute post op complications on CT 2. Neuropathy RT foot, new 3. COnstipation PLAn: Admit PHysiatry and neurosx consults PAin meds scheduled and PRN, IV and PO NSAID PO QUINCY Cont linzess and other stool regimen Would check an MRI if the back metal is MRI compatible Dw her and geochemical manager and TERRIE Bhandari at bedside CADY PAZ MD Sep 03, 2017 14:28
[2017-09-03] MEDS: KETOROLAC 30 MG/ML INJ. IV PRN ×2 (14:50→22:08)
[2017-09-03 15:00] VITALS: BP 152/89
[2017-09-03 15:30] VITALS: BP 140/84
[2017-09-03] MEDS: NAPROXEN 500 MG TABLET PO SCH (16:44)
[2017-09-03] MEDS: HYDROmorphone 2 MG/ML VIAL IVP PRN ×3 (16:45→23:43)
[2017-09-03 19:00] VITALS: BP 132/68
[2017-09-03] MEDS: DOCUSATE SODIUM 100 MG CAPSULE. PO SCH (20:10)
[2017-09-03] MEDS: LISINOPRIL 20 MG TABLET PO SCH ×2 (21:00→22:09)
[2017-09-03 23:00] VITALS: BP 115/79
[2017-09-04] MEDS: HYDROmorphone 2 MG/ML VIAL IVP PRN ×6 (02:39→21:14)
[2017-09-04 03:00] VITALS: BP 112/76
[2017-09-04 06:18] LABS: BASO % 1 % (0-3); EOS % 8 % (0-3); HEMATOCRIT 34.5 % (36.0-47.0); LYMPH # 1.4 x10^3/uL (1.0-4.8); LYMPH % 27 % (24-48); MEAN CORPUSCULAR HEMOGLOBIN 31 pg (25-35); MEAN CORPUSCULAR HGB CONC 35 g/dL (31-37); MEAN CORPUSCULAR VOLUME 88 fL (79-100); MONO % 9 % (0-9); NEUT % 56 % (31-73); PLATELET COUNT 354 x10^3/uL (140-400); RED BLOOD COUNT 3.92 x10^6/uL (3.50-5.40); RED CELL DISTRIBUTION WIDTH 12.4 % (11.5-14.5)
[2017-09-04 06:45] LABS: CALCIUM 8.7 mg/dL (8.5-10.1); CREATININE 0.8 mg/dL (0.6-1.0); GFR 74.7; POTASSIUM 3.6 mmol/L (3.5-5.1)
[2017-09-04 07:00] VITALS: BP 121/74
[2017-09-04] MEDS: NAPROXEN 500 MG TABLET PO SCH (08:00)
--- NOTE | 2017-09-04 08:53 | RAD ---
MRI of the lumbar spine without contrast 09/03/2017 CLINICAL HISTORY: Low back pain which radiates down both legs, right greater than left. History of recent lumbar fusion. Technique: Unenhanced T1-weighted and T2-weighted sagittal and axial recovery sagittal images of the lumbar spine were obtained. FINDINGS: Comparison is made to a CT scan of the lumbar spine performed earlier the same day. Additional comparison is made to a MRI of the lumbar spine dated 10/04/2016. Minimal S-shaped curvature of the thoracolumbar spine is seen. Degenerative signal changes and loss of height are seen involving predominantly the L5-S1 discs. The patient is post laminectomy and fusion using bone graft material, pedicle screws and stabilizing rods at L5-S1. Degenerative signal changes are seen within the marrow surrounding these discs. The conus medullaris is normal morphology, position, and signal characteristics. A 4.1 cm rounded high signal intensity lesion is seen involving the midpole of the right kidney on the T2-weighted images. This likely represents a cyst. At the L1-2 and L2-3 disc spaces there are mild generalized disc bulges. Degenerative changes are seen involving the facet joints bilaterally. There is mild ligamentum flavum hypertrophy bilaterally. These findings when combined do not result in significant central spinal canal or neural foraminal stenosis. At the L3-4 disc space there is a mild generalized disc bulge. This is eccentric to the left. Degenerative changes are seen involving the facet joints bilaterally. There is mild ligamentum flavum hypertrophy bilaterally. These findings when combined do not result in significant central spinal canal or neural foraminal stenosis. At the L4-5 disc space there is a mild generalized disc bulge. Degenerative changes are seen involving the facet joints bilaterally. There is mild ligamentum flavum hypertrophy bilaterally. These findings do not result in significant central spinal canal or neural foraminal stenosis. At the L5-S1 disc space there is a mild generalized disc bulge. Degenerative changes are seen involving the facet joints bilaterally. No significant central spinal canal stenosis is seen. Increased signal intensity is seen to the right of the thecal sac extending into the right neural foramen which likely represents epidural scarring. Mild to moderate right neural foraminal stenosis is seen. The left neural foramen is patent. A somewhat oval-shaped high signal intensity structure is seen extending from the posterior aspect of the disc on the T2-weighted and inversion recovery images which is in a right paracentral/lateral location, best seen on the sagittal images. It measures 5 mm in AP diameter and displaces the right S1 nerve root posteriorly. It is suspicious for focal recurrent disc herniation. IMPRESSION: Post laminectomy and fusion at L5-S1. A 5 mm oval-shaped right paracentral/lateral structure is seen projecting posteriorly from the the disc which is suspicious for a focal recurrent disc herniation as outlined above. This displaces the right S1 nerve root posteriorly. Electronically signed by: Gonsalo Garcia MD (09/04/2017 8:49 AM) [id number]
[2017-09-04] MEDS: DOCUSATE SODIUM 100 MG CAPSULE. PO SCH ×2 (09:00→21:07)
[2017-09-04] MEDS: POLYETHYLENE GLYCOL 3350 17 GM PACKET. PO SCH (09:00)
[2017-09-04] MEDS ORDERED: ONDANSETRON PF 4 MG/2 ML VIAL. IV PRN (09:00)
[2017-09-04] MEDS ORDERED: methylPREDNISolone 4 MG TABLET. PO SCH ×2 (09:00→12:30)
[2017-09-04] MEDS: PROMETHAZINE 12.5 MG in IV NORMAL SALINE 50ML 50 ML IV PRN (09:11)
[2017-09-04] MEDS: CHOLECALCIFEROL (VITAMIN D3) 5,000 UNIT CAPSULE PO SCH (10:36)
[2017-09-04] MEDS: METHOCARBAMOL 750 MG TABLET PO SCH ×4 (10:37→21:13)
[2017-09-04] MEDS: LINACLOTIDE 145 MCG CAPSULE. PO SCH (10:37)
[2017-09-04] MEDS: GABAPENTIN 300 MG CAPSULE. PO SCH ×3 (10:37→21:13)
[2017-09-04] MEDS: oxyCODONE ER 10 MG TAB.ER.12H PO SCH ×2 (10:38→21:13)
--- NOTE | 2017-09-04 10:39 | PDOC ---
PROGRESS NOTES Chief Complaint Chief Complaint 1. BAck pain post op site, normal alignment and no acute post op complications on CT 2. Neuropathy RT foot, new 3. COnstipation History of Present Illness History of Present Illness MRI shows: IMPRESSION: Post laminectomy and fusion at L5-S1. A 5 mm oval-shaped right paracentral/lateral structure is seen projecting posteriorly from the the disc which is suspicious for a focal recurrent disc herniation as outlined above. This displaces the right S1 nerve root posteriorly. SHE is sleepy today Dw Dr Gonsales the findings PLAn: Dc percocet q0 Dec interval dilaudid to q4 from q3 Await neurosx rounds Dw her the findings and with physiatry Vitals Vitals Vital Signs Date Time Temp Pulse Resp B/P (MAP) Pulse Ox O2 Delivery O2 Flow Rate FiO2 09/04/17 09:19 98 Room Air 09/04/17 07:00 98.6 76 18 121/74 (90) 98.6 Physical Exam General: Alert, Oriented X3, Cooperative, No acute distress Abdomen: Normal bowel sounds, Soft, No tenderness, No hepatosplenomegaly, No masses Extremities: Other (hypersensitive feet/toes, tender to light touch) Skin: No rashes, No breakdown, No significant lesion Labs LABS Laboratory Tests Test 09/04/17 05:10 White Blood Count 5.0 x10^3/uL (4.0-11.0) Red Blood Count 3.92 x10^6/uL (3.50-5.40) Hemoglobin 12.0 g/dL (12.0-15.5) Hematocrit 34.5 % (36.0-47.0) Mean Corpuscular Volume 88 fL (79-100) Mean Corpuscular Hemoglobin 31 pg (25-35) Mean Corpuscular Hemoglobin Concent 35 g/dL (31-37) Red Cell Distribution Width 12.4 % (11.5-14.5) Platelet Count 354 x10^3/uL (140-400) Neutrophils (%) (Auto) 56 % (31-73) Lymphocytes (%) (Auto) 27 % (24-48) Monocytes (%) (Auto) 9 % (0-9) Eosinophils (%) (Auto) 8 % (0-3) Basophils (%) (Auto) 1 % (0-3) Neutrophils # (Auto) 2.8 x10^3uL (1.8-7.7) Lymphocytes # (Auto) 1.4 x10^3/uL (1.0-4.8) Monocytes # (Auto) 0.5 x10^3/uL (0.0-1.1) Eosinophils # (Auto) 0.4 x10^3/uL (0.0-0.7) Basophils # (Auto) 0.0 x10^3/uL (0.0-0.2) Sodium Level 141 mmol/L (136-145) Potassium Level 3.6 mmol/L (3.5-5.1) Chloride Level 106 mmol/L (98-107) Carbon Dioxide Level 30 mmol/L (21-32) Anion Gap 5 (6-14) Blood Urea Nitrogen 17 mg/dL (7-20) Creatinine 0.8 mg/dL (0.6-1.0) Estimated GFR (Cockcroft-Gault) 74.7 Glucose Level 94 mg/dL (70-99) Calcium Level 8.7 mg/dL (8.5-10.1) Comment Review of Relevant I have reviewed the following items shelly (where applicable) has been applied. Labs Laboratory Tests Test 09/03/17 10:00 09/03/17 10:33 09/04/17 05:10 Urine Collection Type Void Urine Color Yellow Urine Clarity Clear Urine pH 6.5 Urine Specific [place] 1.010 Urine Protein Negative mg/dL (NEG-TRACE) Urine Glucose (UA) Negative mg/dL (NEG) Urine Ketones (Stick) Negative mg/dL (NEG) Urine Blood Negative (NEG) Urine Nitrite Negative (NEG) Urine Bilirubin Negative (NEG) Urine Urobilinogen Dipstick 0.2 mg/dL (0.2 mg/dL) Urine Leukocyte Esterase Negative (NEG) Urine RBC Occ /HPF (0-2) Urine WBC 1-4 /HPF (0-4) Urine Squamous Epithelial Cells Few /LPF Urine Bacteria Moderate /HPF (0-FEW) White Blood Count 6.0 x10^3/uL (4.0-11.0) 5.0 x10^3/uL (4.0-11.0) Red Blood Count 4.11 x10^6/uL (3.50-5.40) 3.92 x10^6/uL (3.50-5.40) Hemoglobin 12.7 g/dL (12.0-15.5) 12.0 g/dL (12.0-15.5) Hematocrit 36.5 % (36.0-47.0) 34.5 % (36.0-47.0) Mean Corpuscular Volume 89 fL (79-100) 88 fL (79-100) Mean Corpuscular Hemoglobin 31 pg (25-35) 31 pg (25-35) Mean Corpuscular Hemoglobin Concent 35 g/dL (31-37) 35 g/dL (31-37) Red Cell Distribution Width 12.3 % (11.5-14.5) 12.4 % (11.5-14.5) Platelet Count 368 x10^3/uL (140-400) 354 x10^3/uL (140-400) Neutrophils (%) (Auto) 74 % (31-73) 56 % (31-73) Lymphocytes (%) (Auto) 14 % (24-48) 27 % (24-48) Monocytes (%) (Auto) 6 % (0-9) 9 % (0-9) Eosinophils (%) (Auto) 6 % (0-3) 8 % (0-3) Basophils (%) (Auto) 0 % (0-3) 1 % (0-3) Neutrophils # (Auto) 4.4 x10^3uL (1.8-7.7) 2.8 x10^3uL (1.8-7.7) Lymphocytes # (Auto) 0.8 x10^3/uL (1.0-4.8) 1.4 x10^3/uL (1.0-4.8) Monocytes # (Auto) 0.3 x10^3/uL (0.0-1.1) 0.5 x10^3/uL (0.0-1.1) Eosinophils # (Auto) 0.3 x10^3/uL (0.0-0.7) 0.4 x10^3/uL (0.0-0.7) Basophils # (Auto) 0.0 x10^3/uL (0.0-0.2) 0.0 x10^3/uL (0.0-0.2) Prothrombin Time 12.2 SEC (11.7-14.0) Prothromb Time International Ratio 1.0 (0.8-1.1) Sodium Level 141 mmol/L (136-145) 141 mmol/L (136-145) Potassium Level 3.9 mmol/L (3.5-5.1) 3.6 mmol/L (3.5-5.1) Chloride Level 105 mmol/L (98-107) 106 mmol/L (98-107) Carbon Dioxide Level 28 mmol/L (21-32) 30 mmol/L (21-32) Anion Gap 8 (6-14) 5 (6-14) Blood Urea Nitrogen 12 mg/dL (7-20) 17 mg/dL (7-20) Creatinine 0.8 mg/dL (0.6-1.0) 0.8 mg/dL (0.6-1.0) Estimated GFR (Cockcroft-Gault) 74.7 74.7 Glucose Level 100 mg/dL (70-99) 94 mg/dL (70-99) Calcium Level 9.0 mg/dL (8.5-10.1) 8.7 mg/dL (8.5-10.1) Magnesium Level 1.9 mg/dL (1.8-2.4) Total Bilirubin 0.5 mg/dL (0.2-1.0) Direct Bilirubin 0.1 mg/dL (0.0-0.2) Aspartate Amino Transf (AST/SGOT) 27 U/L (15-37) Alanine Aminotransferase (ALT/SGPT) 42 U/L (14-59) Alkaline Phosphatase 70 U/L (46-116) Creatine Kinase 117 U/L (26-192) Creatine Kinase MB (Mass) 0.5 ng/mL (0.0-3.6) Creatine Kinase MB Relative Index 0.4 % (0-4) Total Protein 7.3 g/dL (6.4-8.2) Albumin 3.5 g/dL (3.4-5.0) Laboratory Tests Test 09/04/17 05:10 White Blood Count 5.0 x10^3/uL (4.0-11.0) Red Blood Count 3.92 x10^6/uL (3.50-5.40) Hemoglobin 12.0 g/dL (12.0-15.5) Hematocrit 34.5 % (36.0-47.0) Mean Corpuscular Volume 88 fL (79-100) Mean Corpuscular Hemoglobin 31 pg (25-35) Mean Corpuscular Hemoglobin Concent 35 g/dL (31-37) Red Cell Distribution Width 12.4 % (11.5-14.5) Platelet Count 354 x10^3/uL (140-400) Neutrophils (%) (Auto) 56 % (31-73) Lymphocytes (%) (Auto) 27 % (24-48) Monocytes (%) (Auto) 9 % (0-9) Eosinophils (%) (Auto) 8 % (0-3) Basophils (%) (Auto) 1 % (0-3) Neutrophils # (Auto) 2.8 x10^3uL (1.8-7.7) Lymphocytes # (Auto) 1.4 x10^3/uL (1.0-4.8) Monocytes # (Auto) 0.5 x10^3/uL (0.0-1.1) Eosinophils # (Auto) 0.4 x10^3/uL (0.0-0.7) Basophils # (Auto) 0.0 x10^3/uL (0.0-0.2) Sodium Level 141 mmol/L (136-145) Potassium Level 3.6 mmol/L (3.5-5.1) Chloride Level 106 mmol/L (98-107) Carbon Dioxide Level 30 mmol/L (21-32) Anion Gap 5 (6-14) Blood Urea Nitrogen 17 mg/dL (7-20) Creatinine 0.8 mg/dL (0.6-1.0) Estimated GFR (Cockcroft-Gault) 74.7 Glucose Level 94 mg/dL (70-99) Calcium Level 8.7 mg/dL (8.5-10.1) Medications Current Medications Fentanyl Citrate (Fentanyl 2ml Vial) 50 mcg PRN Q15MIN PRN IV PAIN GREATER THAN 3/10 Last administered on 09/03/17t 11:41; Start 09/03/17 at 10:30; Stop 09/03/17 at 14:14; Status DC Ondansetron HCl (Zofran) 4 mg 1X ONCE IV ; Start 09/03/17 at 10:30; Stop at 10:31; Status DC Promethazine HCl 12.5 mg/Sodium Chloride 50.5 ml @ 151.5 mls/ hr PRN Q6HRS PRN IV NAUSEA/VOMITING Last administered on 09/04/17 09:11; Start 09/03/17 at 11:00 Fentanyl Citrate (Fentanyl 2ml Vial) 50 mcg PRN Q2HR PRN IV PAIN; Start at 12:00 Ketorolac Tromethamine (Toradol) 30 mg PRN Q6HRS PRN IV PAIN Last administered on 09/03/17 22:08; Start 09/03/17 at 12:00; Stop 09/08/17 at 11:59 Acetaminophen/ Hydrocodone Bitart (Lortab 7.5/325) 2 tab PRN Q6HRS PRN PO PAIN ; Start 09/03/17 at 12:00 Linaclotide (Linzess) 145 mcg DAILY PO Last administered on 09/03/17 14:14; Start 09/03/17 at 13:00 Methocarbamol (Robaxin) 750 mg QID PO Last administered on 09/03/17 22:08; Start 09/03/17 at 13:00 Promethazine HCl (Phenergan) 12.5 mg PRN Q6HRS PRN PO NAUSEA; Start 09/03/17 at 12:00 Vitamin D (Vitamin D3) 5,000 unit DAILY PO Last administered on 09/03/17 14: 14; Start 09/03/17 at 13:00 Lisinopril (Prinivil) 20 mg HS PO ; Start 09/03/17 at 21:00 Oxycodone/ Acetaminophen (Percocet 10/325) 1 tab PRN Q4HRS PRN PO pain; Start 09/03/17 at 12:00 Oxycodone/ Acetaminophen (Percocet 5/325) 1 tab PRN Q4HRS PRN PO PAIN; Start 09/03/17 at 12:00 Magnesium Hydroxide (Milk Of Magnesia) 2,400 mg PRN DAILY PRN PO CONSTIPATION; Start 09/03/17 at 12:00 Docusate Sodium (Colace) 100 mg DAILY PO ; Start 09/03/17 at 13:00; Stop 09/03 at 14:14; Status DC Polyethylene Glycol (miraLAX PACKET) 17 gm DAILY PO Last administered on 14:15; Start 09/03/17 at 13:00 Fentanyl Citrate (Fentanyl 2ml Vial) 50 mcg PRN Q2HR PRN IV PAIN; Start at 12:15; Stop 09/04/17 at 12:14 Hydromorphone HCl (Dilaudid) 1 mg PRN Q4HRS PRN IVP PAIN Last administered on 09/03/17 12:45; Start 09/03/17 at 12:30; Stop 09/03/17 at 14:14; Status DC Docusate Sodium (Colace) 100 mg BID PO ; Start 09/03/17 at 21:00 Hydromorphone HCl (Dilaudid) 1 mg PRN Q3HRS PRN IVP PAIN Last administered on 09/04/17 09:19; Start 09/03/17 at 14:15 Naproxen (Naprosyn) 500 mg BIDWMEALS PO Last administered on 09/03/17 16:44; Start 09/03/17 at 17:00; Stop 09/04/17 at 09:05; Status DC Ondansetron HCl (Zofran) 4 mg PRN Q6HRS PRN IV NAUSEA/VOMITING; Start at 09:00 Methylprednisolone (Medrol) 8 mg BID PO ; Start 09/04/17 at 09:00; Stop at 09:38; Status DC Methylprednisolone (Medrol) 4 mg BIDPCLD PO ; Start 09/04/17 at 12:30; Stop at 12:30; Status DC Methylprednisolone (Medrol) 4 mg TIDPC PO ; Start 09/05/17 at 08:30; Stop at 08:30; Status DC Methylprednisolone (Medrol) 8 mg QHS PO ; Start 09/05/17 at 21:00; Stop at 21:00; Status DC Methylprednisolone (Medrol) 4 mg QIDAFTMEAL PO ; Start 09/06/17 at 09:00; Stop 09/06/17 at 09:00; Status DC Methylprednisolone (Medrol) 4 mg TID PO ; Start 09/07/17 at 09:00; Stop at 09:00; Status DC Methylprednisolone (Medrol) 4 mg BID PO ; Start 09/08/17 at 09:00; Stop at 09:00; Status DC Methylprednisolone (Medrol) 4 mg DAILY PO ; Start 09/09/17 at 09:00; Stop at 09:00; Status DC Gabapentin (Neurontin) 300 mg TID PO ; Start 09/04/17 at 09:00 Oxycodone HCl (OxyCONTIN) 10 mg Q12HR PO ; Start 09/04/17 at 09:00 Dexamethasone Sodium Phosphate (Decadron) 4 mg Q6HRS IV ; Start 09/04/17 at 12: 00; Stop 09/05/17 at 12:00 Active Scripts Active Robaxin-750 (Methocarbamol) 750 Mg Tablet 750 Mg PO QID Hydrocodone-Apap 7.5-325 (Hydrocodone Bit/Acetaminophen) 1 Each Tablet 2 Tab PO PRN Q6HRS PRN Reported Promethazine Hcl 12.5 Mg Tablet 1 Tab PO Q6HRS PRN Vitamin D3 (Cholecalciferol (Vitamin D3)) 5,000 Unit Tablet 5,000 Unit PO DAILY Linzess (Linaclotide) 145 Mcg Capsule 145 Mcg PO Lisinopril 20 Mg Tablet 1 Tab PO HS Vitals/I & O Vital Sign - Last 24 Hours 09/03/17 09/03/17 09/03/17 09/03/17 10:43 11:41 12:45 13:10 Temp 97.5 97.5 Pulse 82 Resp 18 18 16 18 B/P (MAP) 128/86 (100) Pulse Ox 98 O2 Delivery Room Air 09/03/17 09/03/17 09/03/17 09/03/17 13:10 15:00 15:14 15:30 Temp 97.5 96.1 97.6 97.5 96.1 97.6 Pulse 82 85 90 Resp 18 16 18 B/P (MAP) 128/86 (100) 152/89 (110) 140/84 (102) Pulse Ox 98 99 99 O2 Delivery Room Air Room Air Room Air Room Air 09/03/17 09/03/17 09/03/17 09/03/17 16:45 19:00 20:00 20:08 Temp 97.4 97.4 Pulse 92 Resp 14 16 B/P (MAP) 132/68 (89) Pulse Ox 99 99 99 O2 Delivery Room Air Room Air Room Air Room Air 09/03/17 09/03/17 09/03/17 09/04/17 21:00 23:00 23:43 02:39 Temp 97.9 97.9 Pulse 92 90 Resp 16 B/P (MAP) 132/68 115/79 (91) Pulse Ox 97 97 97 O2 Delivery Room Air Room Air Room Air 09/04/17 09/04/17 09/04/17 09/04/17 03:00 03:09 06:34 07:00 Temp 97.7 98.6 97.7 98.6 Pulse 76 76 Resp 18 B/P (MAP) 112/76 (88) 121/74 (90) Pulse Ox 98 98 98 98 O2 Delivery Room Air Room Air Room Air Ventilator 09/04/17 09:19 Pulse Ox 98 O2 Delivery Room Air CADY PAZ MD Sep 04, 2017 10:39
--- NOTE | 2017-09-04 11:04 | CONS ---
DATE OF CONSULTATION: 09/04/2017 ATTENDING PHYSICIAN: Dr. Stone. The patient was seen at the request of Dr. Stone for rehab evaluation. She is in room 422. HISTORY OF PRESENT ILLNESS: This is a 52-year-old female status post two lumbar decompression laminectomies done initially last year and then have to have the second operation for recurrent disk herniation 8 days later, and she started having some back pain in November of this year, had gone through epidural steroid injections without help, so she had lumbar decompression laminectomy and fusion done on 08/28/2017. She started having increasing back pain with radiation to the right lower extremity with associated tingling and numbness starting on 08/30/2017, and she apparently went home on 08/29/2017 feeling good. The patient was admitted through the Emergency Room on 09/03/2017 as hydrocodone is not helping. This morning she admits continued back pain, though Dilaudid helping ease the pain for a couple of hours to some degree. She is still having needles pricking in her right leg and right foot. She admits some frequent stools yesterday. She denies any trouble with bladder control. The patient had venous duplex Doppler studies done, which failed to reveal any evidence of deep venous thrombosis. CT and MRI scan of her lumbar vertebrae done revealed post-laminectomy and fusion at L5-S1. A 5 mm oval shaped right paracentral lateral structure is seen projecting posteriorly from the disk, which is suspicious for a focal recurrent disk herniation, displacing the right S1 nerve root posteriorly. 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 PAST MEDICAL HISTORY: Not significant. She lives with her daughter. ALLERGIES: THE PATIENT IS KNOWN ALLERGIC TO MICONAZOLE, PROCHLORPERAZINE, SULFA, TIOCONAZOLE AND AMBIEN. The patient admits hydrocodone is not helping. She admits some nausea, but she states Zofran does not help. She is getting Phenergan by IV. PHYSICAL EXAMINATION: GENERAL: Today revealed a middle-aged female. She is alert, oriented to time, place, person and circumstance and follows commands appropriately. She is cooperative during the examination. She had painful limited movements of her lumbar spine with tenderness to palpation over right lumbar paraspinal muscles, extending over to sacroiliac joint area and to some extent over right gluteal muscles and left sacroiliac joint area. She also had some tenderness to palpation of right calf. She had 5/5 grade muscle strength in her lower extremities. Deep tendon reflexes are 2+ and symmetrical. She had slightly decreased touch and pinprick sensation over the right L5 dermatome area. The patient is independent with bed mobility. I have not tested her transfers or ambulation skills at this time. ASSESSMENT: A middle-aged female with chronic lower back pain, status post lumbar decompression laminectomy and fusion done at L5-S1 level on 08/28/2017, with questionable recurrent disk herniation at the same level and right L5 radiculitis. No clinical evidence of ongoing lumbar radiculopathy. RECOMMENDATIONS: To start her on Medrol Dosepak and gabapentin and OxyContin for better pain control. She already had a lumbar corset, she knows proper body mechanics, to get her up as tolerated and hopefully home with outpatient followup unless Dr. Moy has plans for further surgery. Dr. Stone, I appreciate asking me to participate in the care of this interesting patient. I will be glad to follow her with you as needed for her rehabilitation. LYDIA DIAMOND MD DR: SIN/ct JOB#: [id number] / [id number]
[2017-09-04 11:12] VITALS: BP 127/77
[2017-09-04] MEDS: DEXAMETHASONE SOD PHOS 4 MG/ML VIAL IV SCH ×2 (12:50→17:30)
--- NOTE | 2017-09-04 14:24 | PDOC ---
Provider Note Provider Note patient seen at 1230 had lumbar decompression and instrumented fusion L5-S1 on 08/28/17 developed severe right leg pain over the weekend on imaging studies there is a small focal disc L5-S1 right will plan on surgery in AM for microdiscectomy L5-S1 right full consult to follow JOSSELIN SANDHU MD Sep 04, 2017 14:24
[2017-09-04 15:22] VITALS: BP 143/77
[2017-09-04 19:00] VITALS: BP_SYST 126; BP_SYST 128; BP_SYST 158; BP_DIAS 79; BP_DIAS 84; BP_DIAS 95
[2017-09-04] MEDS: LISINOPRIL 20 MG TABLET PO SCH (21:13)
[2017-09-04 23:00] VITALS: BP 114/79
[2017-09-05] VITALS (12 sets, daily range): BP systolic 85–131; BP diastolic 46–80
[2017-09-05] MEDS: DEXAMETHASONE SOD PHOS 4 MG/ML VIAL IV SCH ×3 (00:26→13:40)
[2017-09-05] MEDS: HYDROmorphone 2 MG/ML VIAL IVP PRN ×2 (01:51→06:11)
[2017-09-05] MEDS ORDERED: GELATIN SPONGE SIZE 100. ONE (05:54)
[2017-09-05] MEDS ORDERED: THROMBIN TOPICAL 20,000 UNIT SPRAY.SYRN KIT TP ONE (05:55)
[2017-09-05] MEDS ORDERED: BUPIVAC MPF-EPI 0.5%-1:200000 10 ML VIAL. ONE (05:55)
[2017-09-05] MEDS ORDERED: KETOROLAC 60 MG/2 ML INJ FOR OR. ONE (05:55)
[2017-09-05] MEDS ORDERED: VANCOMYCIN 1GM IVPB FOR OMNI 250 ML IV PRN (06:00)
[2017-09-05] MEDS ORDERED: BACITRACIN 50,000 UNIT in IV NORMAL SALINE 1000ML BAG 1,000 ML IRR ONE (06:00)
[2017-09-05] MEDS ORDERED: fentaNYL PF VIAL 100 MCG/2 ML VIAL IV PRN (07:00)
[2017-09-05] MEDS ORDERED: VANCOMYCIN 1 GM in IV NORMAL SALINE 250ML 250 ML IV SCH (07:00)
[2017-09-05] MEDS ORDERED: ONDANSETRON PF 4 MG/2 ML VIAL. IV PRN (07:00)
[2017-09-05] MEDS ORDERED: MORPHINE SULFATE 2 MG/ML DISP.SYRIN. IV PRN (07:00)
[2017-09-05] MEDS ORDERED: LIDOCAINE 1% PF 2 ML VIAL. ID PRN (07:00)
[2017-09-05] MEDS ORDERED: IV RINGERS,LACTATED 1000ML 1,000 ML IV SCH (07:00)
--- NOTE | 2017-09-05 07:22 | CONS ---
DATE OF CONSULTATION: 09/04/2017 REASON FOR CONSULTATION: Back and right leg pain. HISTORY OF PRESENT ILLNESS: The patient is a very pleasant 52-year-old woman who a week ago underwent lumbar microdecompression followed by an instrumented lumbar fusion at L5-S1. In her history in the past, she has undergone two lumbar surgeries at L5-S1 on the right for herniated lumbar disc and did well following the most recent surgery until recently when she developed very significant back and right leg pain and was found to have a recurrent disc herniation at L5-S1 on the right. I recommended a re-operation at this time, but because of her multiple previous surgeries I felt that the surgery should be accompanied by an instrumented lumbar fusion. She did this in a uncomplicated fashion, did well and went home having improved back pain along with markedly improved leg pain. She then developed after a few days severe pain in her buttock, hip, lateral thigh and lateral leg to her right foot. She said it was extremely painful and tingling. She said over the weekend, she was unable to sleep because of severe pain. She was seen in the Emergency Room and admitted for further evaluation and treatment. Currently, she notices significant pain in her right leg. She says her back is not particularly painful. She notices a burning discomfort in the right foot. The left side is not involved. She has not noticed problems of weakness. She denies any significant bowel or bladder issues. PAST MEDICAL HISTORY: As described above. She lives with her daughter. ALLERGIES: SHE IS ALLERGIC TO MICONAZOLE, PROCHLORPERAZINE, SULFA, TIOCONAZOLE AND AMBIEN. PHYSICAL EXAMINATION: GENERAL: She is pleasant, alert, cooperative, in mild distress currently with right leg pain. MUSCULOSKELETAL: Examination of the lumbar spine, there was no ecchymosis. The wound was flat. Examination of her right lower extremity markedly positive straight leg raising on the right, relieved by Lasegue's maneuver. There was dysesthetic sensation involving her right foot and in the distal right leg in the L5 distribution to light touch. I felt that her strength was 5/5 in both of her lower extremities. There was full range of motion of her lower extremities. She had 1+ reflexes. IMAGING: I reviewed a lumbar MRI scan. On that study, L5-S1 the post-surgical changes are well seen with the instrumented fusion; however, there appears to be a focal disc herniation on the right side at the level of the disc and extending slightly inferiorly on the medial aspect of the pedicle compressing the right L5 root at its origin. She suffered a recurrent disc herniation presumably from some residual disc in proximity. At this point, I feel the best course would be to have her undergo re-operation with removal of the focal disc herniation. I outlined that surgery in detail. I explained the surgery and the risks involved. She understands. She would like to go ahead. We will go ahead to make the arrangements. JOSSELIN SANDHU MD DR: DUGLAS/ct JOB#: [id number] / [id number] YOLANDA
[2017-09-05] MEDS ORDERED: SCOPOLAMINE 1.5MG PATCH. TD ONE (07:49)
[2017-09-05] MEDS ORDERED: SCOPOLAMINE 1.5MG PATCH. TD PRN (08:00)
[2017-09-05] MEDS ORDERED: REMIFENTANIL 2 MG VIAL. IV ONE (08:09)
[2017-09-05] MEDS ORDERED: fentaNYL PF VIAL 100 MCG/2 ML VIAL ONE (08:10)
[2017-09-05] MEDS ORDERED: LIDOCAINE 2% PF Vial for OR 5 ML VIAL. ONE (08:10)
[2017-09-05] MEDS ORDERED: PROPOFOL 50 ML IV ONE ×2 (08:10→09:52)
[2017-09-05] MEDS ORDERED: PROPOFOL 20 ML IV ONE (08:10)
[2017-09-05] MEDS ORDERED: ONDANSETRON PF 4 MG/2 ML VIAL. ONE (08:10)
[2017-09-05] MEDS ORDERED: DESFLURANE > 120 MINUTES IH ONE (08:10)
[2017-09-05] MEDS ORDERED: PHENYLEPHRINE 10 MG/ML VIAL. ONE (08:10)
[2017-09-05] MEDS ORDERED: DEXAMETHASONE SOD PHOS 20 MG/5 ML VIAL. ONE (08:10)
[2017-09-05] MEDS ORDERED: MIDAZOLAM HCL/PF 2 MG/2 ML VIAL. ONE (08:22)
[2017-09-05] MEDS ORDERED: methylPREDNISolone 4 MG TABLET. PO SCH ×2 (08:30→21:00)
[2017-09-05] MEDS: PROMETHAZINE 12.5 MG in IV NORMAL SALINE 50ML 50 ML IV PRN (08:45)
[2017-09-05] MEDS ORDERED: GLYCOPYRROLATE 1 MG/5 ML VIAL. ONE (08:55)
[2017-09-05] MEDS: METHOCARBAMOL 750 MG TABLET PO SCH ×4 (09:00→20:45)
[2017-09-05] MEDS: CHOLECALCIFEROL (VITAMIN D3) 5,000 UNIT CAPSULE PO SCH (09:00)
[2017-09-05] MEDS: POLYETHYLENE GLYCOL 3350 17 GM PACKET. PO SCH ×2 (09:00→13:37)
[2017-09-05] MEDS: LINACLOTIDE 145 MCG CAPSULE. PO SCH ×3 (09:00→18:02)
[2017-09-05] MEDS: GABAPENTIN 300 MG CAPSULE. PO SCH ×3 (09:00→20:44)
[2017-09-05] MEDS: oxyCODONE ER 10 MG TAB.ER.12H PO SCH ×2 (09:00→20:44)
[2017-09-05] MEDS: DOCUSATE SODIUM 100 MG CAPSULE. PO SCH ×3 (09:00→20:44)
[2017-09-05] MEDS: fentaNYL PF VIAL 100 MCG/2 ML VIAL IV PRN ×3 (11:24→20:46)
--- NOTE | 2017-09-05 11:32 | PDOC ---
PROGRESS NOTES Chief Complaint Chief Complaint 1. BAck pain post op site, normal alignment and no acute post op complications on CT 2. Neuropathy RT foot, new 3. COnstipation History of Present Illness History of Present Illness Out having OR Neuorsx note reviewed She agrees with re do OR PLAN: Check labs post op PAin control Vitals Vitals Vital Signs Date Time Temp Pulse Resp B/P (MAP) Pulse Ox O2 Delivery O2 Flow Rate FiO2 09/05/17 11:24 16 09/05/17 11:21 118 125/76 100 Simple Mask 10 09/05/17 11:06 98.4 98.4 Physical Exam General: Alert, Oriented X3, Cooperative, No acute distress Abdomen: Normal bowel sounds, Soft, No tenderness, No hepatosplenomegaly, No masses Extremities: Other (hypersensitive feet/toes, tender to light touch) Skin: No rashes, No breakdown, No significant lesion Review of Systems Review of Systems out having oR Comment Review of Relevant I have reviewed the following items shelly (where applicable) has been applied. Labs Laboratory Tests Test 09/04/17 05:10 White Blood Count 5.0 x10^3/uL (4.0-11.0) Red Blood Count 3.92 x10^6/uL (3.50-5.40) Hemoglobin 12.0 g/dL (12.0-15.5) Hematocrit 34.5 % (36.0-47.0) Mean Corpuscular Volume 88 fL (79-100) Mean Corpuscular Hemoglobin 31 pg (25-35) Mean Corpuscular Hemoglobin Concent 35 g/dL (31-37) Red Cell Distribution Width 12.4 % (11.5-14.5) Platelet Count 354 x10^3/uL (140-400) Neutrophils (%) (Auto) 56 % (31-73) Lymphocytes (%) (Auto) 27 % (24-48) Monocytes (%) (Auto) 9 % (0-9) Eosinophils (%) (Auto) 8 % (0-3) Basophils (%) (Auto) 1 % (0-3) Neutrophils # (Auto) 2.8 x10^3uL (1.8-7.7) Lymphocytes # (Auto) 1.4 x10^3/uL (1.0-4.8) Monocytes # (Auto) 0.5 x10^3/uL (0.0-1.1) Eosinophils # (Auto) 0.4 x10^3/uL (0.0-0.7) Basophils # (Auto) 0.0 x10^3/uL (0.0-0.2) Sodium Level 141 mmol/L (136-145) Potassium Level 3.6 mmol/L (3.5-5.1) Chloride Level 106 mmol/L (98-107) Carbon Dioxide Level 30 mmol/L (21-32) Anion Gap 5 (6-14) Blood Urea Nitrogen 17 mg/dL (7-20) Creatinine 0.8 mg/dL (0.6-1.0) Estimated GFR (Cockcroft-Gault) 74.7 Glucose Level 94 mg/dL (70-99) Calcium Level 8.7 mg/dL (8.5-10.1) Microbiology 09/03/17 Urine Culture - Preliminary, Resulted 09/03/17 Urine Culture Result 1 ([place]) - Preliminary, Resulted Medications Current Medications Fentanyl Citrate (Fentanyl 2ml Vial) 50 mcg PRN Q15MIN PRN IV PAIN GREATER THAN 3/10 Last administered on 09/03/17 11:41; Start 09/03/17 at 10:30; Stop 09/03/17 at 14:14; Status DC Ondansetron HCl (Zofran) 4 mg 1X ONCE IV ; Start 09/03/17 at 10:30; Stop at 10:31; Status DC Promethazine HCl 12.5 mg/Sodium Chloride 50.5 ml @ 151.5 mls/ hr PRN Q6HRS PRN IV NAUSEA/VOMITING Last administered on 09/05/17 08:45; Start 09/03/17 at 11:00 Fentanyl Citrate (Fentanyl 2ml Vial) 50 mcg PRN Q2HR PRN IV PAIN; Start at 12:00 Ketorolac Tromethamine (Toradol) 30 mg PRN Q6HRS PRN IV PAIN Last administered on 09/03/17 22:08; Start 09/03/17 at 12:00; Stop 09/08/17 at 11:59 Acetaminophen/ Hydrocodone Bitart (Lortab 7.5/325) 2 tab PRN Q6HRS PRN PO PAIN ; Start 09/03/17 at 12:00 Linaclotide (Linzess) 145 mcg DAILY PO Last administered on 09/04/17 10:37; Start 09/03/17 at 13:00 Methocarbamol (Robaxin) 750 mg QID PO Last administered on 09/04/17 21:13; Start 09/03/17 at 13:00 Promethazine HCl (Phenergan) 12.5 mg PRN Q6HRS PRN PO NAUSEA; Start 09/03/17 at 12:00 Vitamin D (Vitamin D3) 5,000 unit DAILY PO Last administered on 09/04/17 10: 36; Start 09/03/17 at 13:00 Lisinopril (Prinivil) 20 mg HS PO Last administered on 09/04/17 21:13; Start 09/03/17 at 21:00 Oxycodone/ Acetaminophen (Percocet 10/325) 1 tab PRN Q4HRS PRN PO pain; Start 09/03/17 at 12:00; Stop 09/04/17 at 10:38; Status DC Oxycodone/ Acetaminophen (Percocet 5/325) 1 tab PRN Q4HRS PRN PO PAIN; Start 09/03/17 at 12:00 Magnesium Hydroxide (Milk Of Magnesia) 2,400 mg PRN DAILY PRN PO CONSTIPATION; Start 09/03/17 at 12:00 Docusate Sodium (Colace) 100 mg DAILY PO ; Start 09/03/17 at 13:00; Stop 09/03 at 14:14; Status DC Polyethylene Glycol (miraLAX PACKET) 17 gm DAILY PO Last administered on 14:15; Start 09/03/17 at 13:00 Fentanyl Citrate (Fentanyl 2ml Vial) 50 mcg PRN Q2HR PRN IV PAIN; Start at 12:15; Stop 09/04/17 at 12:14; Status DC Hydromorphone HCl (Dilaudid) 1 mg PRN Q4HRS PRN IVP PAIN Last administered on 09/03/17 12:45; Start 09/03/17 at 12:30; Stop 09/03/17 at 14:14; Status DC Docusate Sodium (Colace) 100 mg BID PO ; Start 09/03/17 at 21:00 Hydromorphone HCl (Dilaudid) 1 mg PRN Q3HRS PRN IVP PAIN Last administered on 09/04/17 09:19; Start 09/03/17 at 14:15; Stop 09/04/17 at 10:38; Status DC Naproxen (Naprosyn) 500 mg BIDWMEALS PO Last administered on 09/03/17 16:44; Start 09/03/17 at 17:00; Stop 09/04/17 at 09:05; Status DC Ondansetron HCl (Zofran) 4 mg PRN Q6HRS PRN IV NAUSEA/VOMITING; Start at 09:00 Methylprednisolone (Medrol) 8 mg BID PO ; Start 09/04/17 at 09:00; Stop at 09:38; Status DC Methylprednisolone (Medrol) 4 mg BIDPCLD PO ; Start 09/04/17 at 12:30; Stop at 12:30; Status DC Methylprednisolone (Medrol) 4 mg TIDPC PO ; Start 09/05/17 at 08:30; Stop at 08:30; Status DC Methylprednisolone (Medrol) 8 mg QHS PO ; Start 09/05/17 at 21:00; Stop at 21:00; Status DC Methylprednisolone (Medrol) 4 mg QIDAFTMEAL PO ; Start 09/06/17 at 09:00; Stop 09/06/17 at 09:00; Status DC Methylprednisolone (Medrol) 4 mg TID PO ; Start 09/07/17 at 09:00; Stop at 09:00; Status DC Methylprednisolone (Medrol) 4 mg BID PO ; Start 09/08/17 at 09:00; Stop at 09:00; Status DC Methylprednisolone (Medrol) 4 mg DAILY PO ; Start 09/09/17 at 09:00; Stop at 09:00; Status DC Gabapentin (Neurontin) 300 mg TID PO Last administered on 09/04/17 21:13; Start 09/04/17 at 09:00 Oxycodone HCl (OxyCONTIN) 10 mg Q12HR PO Last administered on 09/04/17 21:13 ; Start 09/04/17 at 09:00 Dexamethasone Sodium Phosphate (Decadron) 4 mg Q6HRS IV Last administered on 06:11; Start 09/04/17 at 12:00; Stop 09/05/17 at 12:00 Hydromorphone HCl (Dilaudid) 1 mg PRN Q4HRS PRN IVP PAIN Last administered on 09/05/17 06:11; Start 09/04/17 at 10:45 Bacitracin 17525 unit/Sodium Chloride 1,000 ml @ 1,000 mls/hr 1X PERIOP ONCE IRR Last administered on 09/05/17 09:35; Start 09/05/17 at 06:00; Stop at 06:59; Status DC Vancomycin HCl 1 gm/Sodium Chloride 250 ml @ 166.667 mls/hr 1X PREOP IV ; Start 09/05/17 at 07:00; Status UNV Vancomycin HCl 250 ml @ 250 mls/hr 1X PREOP PRN IV PRIOR TO PROCEDURE Last administered on 09/05/17 09:15; Start 09/05/17 at 06:00; Stop 09/05/17 at 18 :00 Ondansetron HCl (Zofran) 4 mg PRN Q6HRS PRN IV NAUSEA/VOMITING; Start at 07:00; Stop 09/06/17 at 06:59 Fentanyl Citrate (Fentanyl 2ml Vial) 25 mcg PRN Q5MIN PRN IV MILD PAIN; Start 09/05/17 at 07:00; Stop 09/06/17 at 06:59 Fentanyl Citrate (Fentanyl 2ml Vial) 50 mcg PRN Q5MIN PRN IV MODERATE PAIN Last administered on 09/05/17 11:24; Start 09/05/17 at 07:00; Stop 09/06/17 at 06:59 Morphine Sulfate 1 mg PRN Q10MIN PRN IV SEVERE PAIN; Start 09/05/17 at 07:00; Stop 09/06/17 at 06:59 Ringer's Solution 1,000 ml @ 30 mls/hr Q24H IV ; Start 09/05/17 at 07:00; Stop 09/05/17 at 18:59 Lidocaine HCl (Xylocaine-Mpf 1% Vial) 2 ml PRN 1X PRN ID IV START; Start 09/05 at 07:00; Stop 09/06/17 at 06:59 Hydromorphone HCl (Dilaudid) 0.5 mg PRN Q10MIN PRN IV SEV PAIN, Second choice; Start 09/05/17 at 07:00; Stop 09/06/17 at 06:59 Gelatin (Gelfoam Size 100) 1 each STK-MED ONCE .ROUTE Last administered on 09:35; Start 09/05/17 at 05:54; Stop 09/05/17 at 06:55; Status DC Bupivacaine HCl/ Epinephrine Bitart (Sensorcain-Mpf Epi 0.5%-1:[id number]) 10 ml STK -MED ONCE .ROUTE Last administered on 09/05/17 09:35; Start 09/05/17 at 05: 55; Stop 09/05/17 at 06:55; Status DC Ketorolac Tromethamine (Toradol For Or Only) 60 mg STK-MED ONCE .ROUTE Last administered on 09/05/17 09:35; Start 09/05/17 at 05:55; Stop 09/05/17 at 06 :55; Status DC Thrombin 20,000 unit STK-MED ONCE TP Last administered on 09/05/17 09:35; Start 09/05/17 at 05:55; Stop 09/05/17 at 06:55; Status DC Scopolamine (Transderm-Scop) 1 patch STK-MED ONCE TD ; Start 09/05/17 at 07:49 ; Stop 09/05/17 at 07:50; Status DC Scopolamine (Transderm-Scop) 1 patch 1X PERIOP PRN TD NAUSEA Last administered on 09/05/17 07:50; Start 09/05/17 at 08:00 Remifentanil HCl (Ultiva) 2 mg STK-MED ONCE IV ; Start 09/05/17 at 08:09; Stop 09/05/17 at 08:10; Status DC Fentanyl Citrate (Fentanyl 2ml Vial) 100 mcg STK-MED ONCE .ROUTE ; Start at 08:10; Stop 09/05/17 at 08:11; Status DC Phenylephrine HCl (Guido-Synephrine Inj) 10 mg STK-MED ONCE .ROUTE ; Start at 08:10; Stop 09/05/17 at 08:11; Status DC Desflurane (Suprane) 90 ml STK-MED ONCE IH ; Start 09/05/17 at 08:10; Stop at 08:11; Status DC Propofol 20 ml @ As Directed STK-MED ONCE IV ; Start 09/05/17 at 08:10; Stop 09/05/17 at 08:11; Status DC Dexamethasone Sodium Phosphate (Decadron) 20 mg STK-MED ONCE .ROUTE ; Start at 08:10; Stop 09/05/17 at 08:11; Status DC Propofol 50 ml @ As Directed STK-MED ONCE IV ; Start 09/05/17 at 08:10; Stop 09/05/17 at 08:11; Status DC Lidocaine HCl (Lidocaine Pf 2% Vial) 5 ml STK-MED ONCE .ROUTE ; Start 09/05/17 at 08:10; Stop 09/05/17 at 08:11; Status DC Ondansetron HCl (Zofran) 4 mg STK-MED ONCE .ROUTE ; Start 09/05/17 at 08:10; Stop 09/05/17 at 08:11; Status DC Midazolam HCl (Versed) 2 mg STK-MED ONCE .ROUTE ; Start 09/05/17 at 08:22; Stop 09/05/17 at 08:23; Status DC Ephedrine Sulfate (Akovaz) 50 mg STK-MED ONCE .ROUTE ; Start 09/05/17 at 08:49 ; Stop 09/05/17 at 08:50; Status DC Glycopyrrolate (Robinul) 1 mg STK-MED ONCE .ROUTE ; Start 09/05/17 at 08:55; Stop 09/05/17 at 08:56; Status DC Propofol 50 ml @ As Directed STK-MED ONCE IV ; Start 09/05/17 at 09:52; Stop 09/05/17 at 09:53; Status DC Active Scripts Active Robaxin-750 (Methocarbamol) 750 Mg Tablet 750 Mg PO QID Hydrocodone-Apap 7.5-325 (Hydrocodone Bit/Acetaminophen) 1 Each Tablet 2 Tab PO PRN Q6HRS PRN Reported Promethazine Hcl 12.5 Mg Tablet 1 Tab PO Q6HRS PRN Vitamin D3 (Cholecalciferol (Vitamin D3)) 5,000 Unit Tablet 5,000 Unit PO DAILY Linzess (Linaclotide) 145 Mcg Capsule 145 Mcg PO Lisinopril 20 Mg Tablet 1 Tab PO HS Vitals/I & O Vital Sign - Last 24 Hours 09/04/17 09/04/17 09/04/17 09/04/17 13:31 15:22 17:29 19:00 Temp 98.6 98.3 98.6 98.3 Pulse 81 85 Resp 18 20 B/P (MAP) 143/77 (99) 126/79 (95) Pulse Ox 97 97 O2 Delivery Room Air Room Air Room Air Room Air 09/04/17 09/04/17 09/04/17 09/04/17 20:55 21:13 21:13 21:14 Pulse 85 Resp 18 20 B/P (MAP) 126/79 Pulse Ox 97 97 O2 Delivery Room Air Room Air Room Air 09/04/17 09/05/17 09/05/17 09/05/17 23:00 01:15 01:51 02:30 Temp 98.0 98.0 Pulse 91 Resp 20 20 20 20 B/P (MAP) 114/79 (91) Pulse Ox 96 96 96 98 O2 Delivery Room Air Room Air Room Air 09/05/17 09/05/17 09/05/17 09/05/17 03:00 06:11 07:00 07:00 Temp 97.8 97.8 Pulse 83 80 Resp 20 20 18 B/P (MAP) 121/80 (94) 117/75 (89) Pulse Ox 98 98 95 O2 Delivery Room Air Room Air Room Air Room Air 09/05/17 09/05/17 09/05/17 09/05/17 07:30 07:40 11:06 11:21 Temp 98.4 98.4 98.4 98.4 Pulse 82 115 118 Resp 20 16 B/P (MAP) 131/87 128/65 125/76 Pulse Ox 99 100 O2 Delivery Room Air Room Air Simple Mask Simple Mask O2 Flow Rate 10 10 09/05/17 11:24 Resp 16 Intake and Output 09/05/17 09/05/17 09/06/17 15:00 23:00 07:00 Intake Total 1075 ml Balance 1075 ml CADY PAZ MD Sep 05, 2017 11:32
[2017-09-05] MEDS: HYDROmorphone 2 MG/ML VIAL IV PRN ×2 (11:52→12:12)
--- NOTE | 2017-09-05 17:35 | PDOC ---
PROGRESS NOTES Subjective Subjective She feels better post op. Objective Objective Vital Signs Date Time Temp Pulse Resp B/P (MAP) Pulse Ox O2 Delivery O2 Flow Rate FiO2 09/05/17 15:13 Room Air 09/05/17 12:12 12 09/05/17 11:51 116 129/68 97 09/05/17 11:36 97.7 97.7 09/05/17 11:21 10 Intake and Output 09/06/17 07:00 Intake Total 1315 ml Output Total 1205 ml Balance 110 ml Intake Oral 240 ml IV Total 1075 ml Output Urine Total 1200 ml Estimated Blood Loss 5 ml Physical Exam Physical Exam She is comfortable sitting up at edge of bed and eating supper.She is not passing gases but no problems with urination. Plan Plan of Care To encourage her to use back brace while up and home with out patient follow up tomorrow. Comment Review of Relevant I have reviewed the following items shelly (where applicable) has been applied. Labs Laboratory Tests Test 09/04/17 05:10 White Blood Count 5.0 x10^3/uL (4.0-11.0) Red Blood Count 3.92 x10^6/uL (3.50-5.40) Hemoglobin 12.0 g/dL (12.0-15.5) Hematocrit 34.5 % (36.0-47.0) Mean Corpuscular Volume 88 fL (79-100) Mean Corpuscular Hemoglobin 31 pg (25-35) Mean Corpuscular Hemoglobin Concent 35 g/dL (31-37) Red Cell Distribution Width 12.4 % (11.5-14.5) Platelet Count 354 x10^3/uL (140-400) Neutrophils (%) (Auto) 56 % (31-73) Lymphocytes (%) (Auto) 27 % (24-48) Monocytes (%) (Auto) 9 % (0-9) Eosinophils (%) (Auto) 8 % (0-3) Basophils (%) (Auto) 1 % (0-3) Neutrophils # (Auto) 2.8 x10^3uL (1.8-7.7) Lymphocytes # (Auto) 1.4 x10^3/uL (1.0-4.8) Monocytes # (Auto) 0.5 x10^3/uL (0.0-1.1) Eosinophils # (Auto) 0.4 x10^3/uL (0.0-0.7) Basophils # (Auto) 0.0 x10^3/uL (0.0-0.2) Sodium Level 141 mmol/L (136-145) Potassium Level 3.6 mmol/L (3.5-5.1) Chloride Level 106 mmol/L (98-107) Carbon Dioxide Level 30 mmol/L (21-32) Anion Gap 5 (6-14) Blood Urea Nitrogen 17 mg/dL (7-20) Creatinine 0.8 mg/dL (0.6-1.0) Estimated GFR (Cockcroft-Gault) 74.7 Glucose Level 94 mg/dL (70-99) Calcium Level 8.7 mg/dL (8.5-10.1) Microbiology 09/03/17 Urine Culture - Final, Complete 09/03/17 Urine Culture Result 1 ([place]) - Final, Complete 09/03/17 Antimicrobic Susceptibility - Final, Complete Medications Current Medications Fentanyl Citrate (Fentanyl 2ml Vial) 50 mcg PRN Q15MIN PRN IV PAIN GREATER THAN 3/10 Last administered on 09/03/17 11:41; Start 09/03/17 at 10:30; Stop 09/03/17 at 14:14; Status DC Ondansetron HCl (Zofran) 4 mg 1X ONCE IV ; Start 09/03/17 at 10:30; Stop at 10:31; Status DC Promethazine HCl 12.5 mg/Sodium Chloride 50.5 ml @ 151.5 mls/ hr PRN Q6HRS PRN IV NAUSEA/VOMITING Last administered on 09/05/17 08:45; Start 09/03/17 at 11:00 Fentanyl Citrate (Fentanyl 2ml Vial) 50 mcg PRN Q2HR PRN IV PAIN; Start at 12:00 Ketorolac Tromethamine (Toradol) 30 mg PRN Q6HRS PRN IV PAIN Last administered on 09/03/17 22:08; Start 09/03/17 at 12:00; Stop 09/08/17 at 11:59 Acetaminophen/ Hydrocodone Bitart (Lortab 7.5/325) 2 tab PRN Q6HRS PRN PO PAIN Last administered on 09/05/17 15:13; Start 09/03/17 at 12:00 Linaclotide (Linzess) 145 mcg DAILY PO Last administered on 09/04/17 10:37; Start 09/03/17 at 13:00 Methocarbamol (Robaxin) 750 mg QID PO Last administered on 09/05/17 13:37; Start 09/03/17 at 13:00 Promethazine HCl (Phenergan) 12.5 mg PRN Q6HRS PRN PO NAUSEA; Start 09/03/17 at 12:00 Vitamin D (Vitamin D3) 5,000 unit DAILY PO Last administered on 09/04/17 10: 36; Start 09/03/17 at 13:00 Lisinopril (Prinivil) 20 mg HS PO Last administered on 09/04/17 21:13; Start 09/03/17 at 21:00 Oxycodone/ Acetaminophen (Percocet 10/325) 1 tab PRN Q4HRS PRN PO pain; Start 09/03/17 at 12:00; Stop 09/04/17 at 10:38; Status DC Oxycodone/ Acetaminophen (Percocet 5/325) 1 tab PRN Q4HRS PRN PO PAIN; Start 09/03/17 at 12:00 Magnesium Hydroxide (Milk Of Magnesia) 2,400 mg PRN DAILY PRN PO CONSTIPATION; Start 09/03/17 at 12:00 Docusate Sodium (Colace) 100 mg DAILY PO ; Start 09/03/17 at 13:00; Stop 09/03 at 14:14; Status DC Polyethylene Glycol (miraLAX PACKET) 17 gm DAILY PO Last administered on 13:37; Start 09/03/17 at 13:00 Fentanyl Citrate (Fentanyl 2ml Vial) 50 mcg PRN Q2HR PRN IV PAIN; Start at 12:15; Stop 09/04/17 at 12:14; Status DC Hydromorphone HCl (Dilaudid) 1 mg PRN Q4HRS PRN IVP PAIN Last administered on 09/03/17 12:45; Start 09/03/17 at 12:30; Stop 09/03/17 at 14:14; Status DC Docusate Sodium (Colace) 100 mg BID PO Last administered on 09/05/17 13:37; Start 09/03/17 at 21:00 Hydromorphone HCl (Dilaudid) 1 mg PRN Q3HRS PRN IVP PAIN Last administered on 09/04/17 09:19; Start 09/03/17 at 14:15; Stop 09/04/17 at 10:38; Status DC Naproxen (Naprosyn) 500 mg BIDWMEALS PO Last administered on 09/03/17 16:44; Start 09/03/17 at 17:00; Stop 09/04/17 at 09:05; Status DC Ondansetron HCl (Zofran) 4 mg PRN Q6HRS PRN IV NAUSEA/VOMITING; Start at 09:00 Methylprednisolone (Medrol) 8 mg BID PO ; Start 09/04/17 at 09:00; Stop at 09:38; Status DC Methylprednisolone (Medrol) 4 mg BIDPCLD PO ; Start 09/04/17 at 12:30; Stop at 12:30; Status DC Methylprednisolone (Medrol) 4 mg TIDPC PO ; Start 09/05/17 at 08:30; Stop at 08:30; Status DC Methylprednisolone (Medrol) 8 mg QHS PO ; Start 09/05/17 at 21:00; Stop at 21:00; Status DC Methylprednisolone (Medrol) 4 mg QIDAFTMEAL PO ; Start 09/06/17 at 09:00; Stop 09/06/17 at 09:00; Status DC Methylprednisolone (Medrol) 4 mg TID PO ; Start 09/07/17 at 09:00; Stop at 09:00; Status DC Methylprednisolone (Medrol) 4 mg BID PO ; Start 09/08/17 at 09:00; Stop at 09:00; Status DC Methylprednisolone (Medrol) 4 mg DAILY PO ; Start 09/09/17 at 09:00; Stop at 09:00; Status DC Gabapentin (Neurontin) 300 mg TID PO Last administered on 09/04/17 21:13; Start 09/04/17 at 09:00 Oxycodone HCl (OxyCONTIN) 10 mg Q12HR PO Last administered on 09/04/17 21:13 ; Start 09/04/17 at 09:00 Dexamethasone Sodium Phosphate (Decadron) 4 mg Q6HRS IV Last administered on 13:40; Start 09/04/17 at 12:00; Stop 09/05/17 at 12:00; Status DC Hydromorphone HCl (Dilaudid) 1 mg PRN Q4HRS PRN IVP PAIN Last administered on 09/05/17 06:11; Start 09/04/17 at 10:45 Bacitracin 20104 unit/Sodium Chloride 1,000 ml @ 1,000 mls/hr 1X PERIOP ONCE IRR Last administered on 09/05/17 09:35; Start 09/05/17 at 06:00; Stop at 06:59; Status DC Vancomycin HCl 1 gm/Sodium Chloride 250 ml @ 166.667 mls/hr 1X PREOP IV ; Start 09/05/17 at 07:00; Status UNV Vancomycin HCl 250 ml @ 250 mls/hr 1X PREOP PRN IV PRIOR TO PROCEDURE Last administered on 09/05/17 09:15; Start 09/05/17 at 06:00; Stop 09/05/17 at 18 :00 Ondansetron HCl (Zofran) 4 mg PRN Q6HRS PRN IV NAUSEA/VOMITING; Start at 07:00; Stop 09/06/17 at 06:59 Fentanyl Citrate (Fentanyl 2ml Vial) 25 mcg PRN Q5MIN PRN IV MILD PAIN; Start 09/05/17 at 07:00; Stop 09/06/17 at 06:59 Fentanyl Citrate (Fentanyl 2ml Vial) 50 mcg PRN Q5MIN PRN IV MODERATE PAIN Last administered on 09/05/17 11:48; Start 09/05/17 at 07:00; Stop 09/06/17 at 06:59 Morphine Sulfate 1 mg PRN Q10MIN PRN IV SEVERE PAIN; Start 09/05/17 at 07:00; Stop 09/06/17 at 06:59 Ringer's Solution 1,000 ml @ 30 mls/hr Q24H IV ; Start 09/05/17 at 07:00; Stop 09/05/17 at 18:59 Lidocaine HCl (Xylocaine-Mpf 1% Vial) 2 ml PRN 1X PRN ID IV START; Start 09/05 at 07:00; Stop 09/06/17 at 06:59 Hydromorphone HCl (Dilaudid) 0.5 mg PRN Q10MIN PRN IV SEV PAIN, Second choice Last administered on 09/05/17 12:12; Start 09/05/17 at 07:00; Stop 09/06/17 at 06:59 Gelatin (Gelfoam Size 100) 1 each STK-MED ONCE .ROUTE Last administered on 09:35; Start 09/05/17 at 05:54; Stop 09/05/17 at 06:55; Status DC Bupivacaine HCl/ Epinephrine Bitart (Sensorcain-Mpf Epi 0.5%-1:429206) 10 ml STK -MED ONCE .ROUTE Last administered on 09/05/17 09:35; Start 09/05/17 at 05: 55; Stop 09/05/17 at 06:55; Status DC Ketorolac Tromethamine (Toradol For Or Only) 60 mg STK-MED ONCE .ROUTE Last administered on 09/05/17 09:35; Start 09/05/17 at 05:55; Stop 09/05/17 at 06 :55; Status DC Thrombin 20,000 unit STK-MED ONCE TP Last administered on 09/05/17 09:35; Start 09/05/17 at 05:55; Stop 09/05/17 at 06:55; Status DC Scopolamine (Transderm-Scop) 1 patch STK-MED ONCE TD ; Start 09/05/17 at 07:49 ; Stop 09/05/17 at 07:50; Status DC Scopolamine (Transderm-Scop) 1 patch 1X PERIOP PRN TD NAUSEA Last administered on 09/05/17 07:50; Start 09/05/17 at 08:00 Remifentanil HCl (Ultiva) 2 mg STK-MED ONCE IV ; Start 09/05/17 at 08:09; Stop 09/05/17 at 08:10; Status DC Fentanyl Citrate (Fentanyl 2ml Vial) 100 mcg STK-MED ONCE .ROUTE ; Start at 08:10; Stop 09/05/17 at 08:11; Status DC Phenylephrine HCl (Guido-Synephrine Inj) 10 mg STK-MED ONCE .ROUTE ; Start at 08:10; Stop 09/05/17 at 08:11; Status DC Desflurane (Suprane) 90 ml STK-MED ONCE IH ; Start 09/05/17 at 08:10; Stop at 08:11; Status DC Propofol 20 ml @ As Directed STK-MED ONCE IV ; Start 09/05/17 at 08:10; Stop 09/05/17 at 08:11; Status DC Dexamethasone Sodium Phosphate (Decadron) 20 mg STK-MED ONCE .ROUTE ; Start at 08:10; Stop 09/05/17 at 08:11; Status DC Propofol 50 ml @ As Directed STK-MED ONCE IV ; Start 09/05/17 at 08:10; Stop 09/05/17 at 08:11; Status DC Lidocaine HCl (Lidocaine Pf 2% Vial) 5 ml STK-MED ONCE .ROUTE ; Start 09/05/17 at 08:10; Stop 09/05/17 at 08:11; Status DC Ondansetron HCl (Zofran) 4 mg STK-MED ONCE .ROUTE ; Start 09/05/17 at 08:10; Stop 09/05/17 at 08:11; Status DC Midazolam HCl (Versed) 2 mg STK-MED ONCE .ROUTE ; Start 09/05/17 at 08:22; Stop 09/05/17 at 08:23; Status DC Ephedrine Sulfate (Akovaz) 50 mg STK-MED ONCE .ROUTE ; Start 09/05/17 at 08:49 ; Stop 09/05/17 at 08:50; Status DC Glycopyrrolate (Robinul) 1 mg STK-MED ONCE .ROUTE ; Start 09/05/17 at 08:55; Stop 09/05/17 at 08:56; Status DC Propofol 50 ml @ As Directed STK-MED ONCE IV ; Start 09/05/17 at 09:52; Stop 09/05/17 at 09:53; Status DC Active Scripts Active Robaxin-750 (Methocarbamol) 750 Mg Tablet 750 Mg PO QID Hydrocodone-Apap 7.5-325 (Hydrocodone Bit/Acetaminophen) 1 Each Tablet 2 Tab PO PRN Q6HRS PRN Reported Promethazine Hcl 12.5 Mg Tablet 1 Tab PO Q6HRS PRN Vitamin D3 (Cholecalciferol (Vitamin D3)) 5,000 Unit Tablet 5,000 Unit PO DAILY Linzess (Linaclotide) 145 Mcg Capsule 145 Mcg PO Lisinopril 20 Mg Tablet 1 Tab PO HS Vitals/I & O Vital Sign - Last 24 Hours 09/04/17 09/04/17 09/04/17 09/04/17 19:00 20:55 21:13 21:13 Temp 98.3 98.3 Pulse 85 85 Resp 20 18 B/P (MAP) 126/79 (95) 126/79 Pulse Ox 97 97 O2 Delivery Room Air Room Air Room Air 09/04/17 09/04/17 09/05/17 09/05/17 21:14 23:00 01:15 01:51 Temp 98.0 98.0 Pulse 91 Resp 20 20 20 20 B/P (MAP) 114/79 (91) Pulse Ox 97 96 96 96 O2 Delivery Room Air Room Air Room Air Room Air 09/05/17 09/05/17 09/05/17 09/05/17 02:30 03:00 06:11 07:00 Temp 97.8 97.8 Pulse 83 Resp 20 20 20 B/P (MAP) 121/80 (94) Pulse Ox 98 98 98 O2 Delivery Room Air Room Air Room Air 09/05/17 09/05/17 09/05/17 09/05/17 07:00 07:30 07:40 11:06 Temp 98.4 98.4 98.4 98.4 Pulse 80 82 115 Resp 18 20 B/P (MAP) 117/75 (89) 131/87 128/65 Pulse Ox 95 99 O2 Delivery Room Air Room Air Room Air Simple Mask O2 Flow Rate 10 09/05/17 09/05/17 09/05/17 09/05/17 11:10 11:21 11:24 11:36 Temp 97.7 97.7 Pulse 118 112 Resp 16 16 16 B/P (MAP) 125/76 131/70 Pulse Ox 100 99 O2 Delivery Room Air Simple Mask Room Air O2 Flow Rate 10 10 09/05/17 09/05/17 09/05/17 09/05/17 11:51 11:52 12:12 15:13 Pulse 116 Resp 16 16 12 B/P (MAP) 129/68 Pulse Ox 97 O2 Delivery Room Air Room Air Room Air Intake and Output 09/05/17 09/05/17 09/06/17 15:00 23:00 07:00 Intake Total 1315 ml Output Total 1205 ml Balance 110 ml LYDIA DIAMOND MD Sep 05, 2017 17:35
[2017-09-05] MEDS: oxyCODONE/APAP 5/325 1 TAB TABLET PO PRN (18:01)
[2017-09-05] MEDS: LISINOPRIL 20 MG TABLET PO SCH (20:45)
[2017-09-06 03:00] VITALS: BP 93/55
[2017-09-06] MEDS: oxyCODONE/APAP 5/325 1 TAB TABLET PO PRN (04:34)
[2017-09-06] MEDS: fentaNYL PF VIAL 100 MCG/2 ML VIAL IV PRN (04:34)
[2017-09-06 05:47] LABS: BASO % 0 % (0-3); EOS % 0 % (0-3); HEMATOCRIT 29.9 % (36.0-47.0); HEMOGLOBIN 10.4 g/dL (12.0-15.5); LYMPH % 7 % (24-48); MEAN CORPUSCULAR HEMOGLOBIN 31 pg (25-35); MEAN CORPUSCULAR HGB CONC 35 g/dL (31-37); MEAN CORPUSCULAR VOLUME 88 fL (79-100); MONO % 6 % (0-9); NEUT % 86 % (31-73); PLATELET COUNT 323 x10^3/uL (140-400); RED CELL DISTRIBUTION WIDTH 12.8 % (11.5-14.5); WHITE BLOOD COUNT 13.3 x10^3/uL (4.0-11.0)
[2017-09-06 06:01] LABS: CALCIUM 9.1 mg/dL (8.5-10.1); CREATININE 0.7 mg/dL (0.6-1.0); GFR 87.2
[2017-09-06 07:45] VITALS: BP 99/56
[2017-09-06] MEDS ORDERED: methylPREDNISolone 4 MG TABLET. PO SCH (09:00)
[2017-09-06] MEDS: CHOLECALCIFEROL (VITAMIN D3) 5,000 UNIT CAPSULE PO SCH (09:10)
[2017-09-06] MEDS: oxyCODONE ER 10 MG TAB.ER.12H PO SCH (09:10)
[2017-09-06] MEDS: METHOCARBAMOL 750 MG TABLET PO SCH ×2 (09:10→12:49)
[2017-09-06] MEDS: LINACLOTIDE 145 MCG CAPSULE. PO SCH (09:10)
[2017-09-06] MEDS: GABAPENTIN 300 MG CAPSULE. PO SCH ×2 (09:10→12:49)
[2017-09-06] MEDS: DOCUSATE SODIUM 100 MG CAPSULE. PO SCH (09:10)
[2017-09-06] MEDS: POLYETHYLENE GLYCOL 3350 17 GM PACKET. PO SCH (09:11)
[2017-09-06 09:51] LABS: PLT ESTIMATE ADEQUATE (ADEQUATE)
--- NOTE | 2017-09-06 09:56 | PDOC ---
PROGRESS NOTES Subjective Subjective She admits continued right lower extremity numbness and some back pain and she feels fentanyl,percocet,gabapentin are helping. She passed gases and voiding without any difficulty. Objective Objective Vital Signs Date Time Temp Pulse Resp B/P (MAP) Pulse Ox O2 Delivery O2 Flow Rate FiO2 09/06/17 09:10 98 Room Air 09/06/17 07:45 97.9 85 18 99/56 (70) 97.9 09/05/17 11:21 10 Intake and Output 09/07/17 06:59 Intake Total 120 ml Balance 120 ml Intake Oral 120 ml Physical Exam Physical Exam She is alert and comfortable sitting in bedside chair and physical and occupational therapy working with her.She continues with decreased sensory perception over right L5 dermatome. Plan Plan of Long-Term with out patient follow up later on today and to let her go home on fentanyl patch and gabapentin and she already have percocet for breakthrough pain at home. Comment Review of Relevant I have reviewed the following items shelly (where applicable) has been applied. Labs Laboratory Tests Test 09/06/17 04:25 White Blood Count 13.3 x10^3/uL (4.0-11.0) Red Blood Count 3.40 x10^6/uL (3.50-5.40) Hemoglobin 10.4 g/dL (12.0-15.5) Hematocrit 29.9 % (36.0-47.0) Mean Corpuscular Volume 88 fL (79-100) Mean Corpuscular Hemoglobin 31 pg (25-35) Mean Corpuscular Hemoglobin Concent 35 g/dL (31-37) Red Cell Distribution Width 12.8 % (11.5-14.5) Platelet Count 323 x10^3/uL (140-400) Neutrophils (%) (Auto) 86 % (31-73) Lymphocytes (%) (Auto) 7 % (24-48) Monocytes (%) (Auto) 6 % (0-9) Eosinophils (%) (Auto) 0 % (0-3) Basophils (%) (Auto) 0 % (0-3) Neutrophils # (Auto) 11.5 x10^3uL (1.8-7.7) Lymphocytes # (Auto) 1.0 x10^3/uL (1.0-4.8) Monocytes # (Auto) 0.8 x10^3/uL (0.0-1.1) Eosinophils # (Auto) 0.0 x10^3/uL (0.0-0.7) Basophils # (Auto) 0.0 x10^3/uL (0.0-0.2) Sodium Level 143 mmol/L (136-145) Potassium Level 4.0 mmol/L (3.5-5.1) Chloride Level 107 mmol/L (98-107) Carbon Dioxide Level 27 mmol/L (21-32) Anion Gap 9 (6-14) Blood Urea Nitrogen 26 mg/dL (7-20) Creatinine 0.7 mg/dL (0.6-1.0) Estimated GFR (Cockcroft-Gault) 87.2 Glucose Level 109 mg/dL (70-99) Calcium Level 9.1 mg/dL (8.5-10.1) Laboratory Tests Test 09/06/17 04:25 White Blood Count 13.3 x10^3/uL (4.0-11.0) Red Blood Count 3.40 x10^6/uL (3.50-5.40) Hemoglobin 10.4 g/dL (12.0-15.5) Hematocrit 29.9 % (36.0-47.0) Mean Corpuscular Volume 88 fL (79-100) Mean Corpuscular Hemoglobin 31 pg (25-35) Mean Corpuscular Hemoglobin Concent 35 g/dL (31-37) Red Cell Distribution Width 12.8 % (11.5-14.5) Platelet Count 323 x10^3/uL (140-400) Neutrophils (%) (Auto) 86 % (31-73) Lymphocytes (%) (Auto) 7 % (24-48) Monocytes (%) (Auto) 6 % (0-9) Eosinophils (%) (Auto) 0 % (0-3) Basophils (%) (Auto) 0 % (0-3) Neutrophils # (Auto) 11.5 x10^3uL (1.8-7.7) Lymphocytes # (Auto) 1.0 x10^3/uL (1.0-4.8) Monocytes # (Auto) 0.8 x10^3/uL (0.0-1.1) Eosinophils # (Auto) 0.0 x10^3/uL (0.0-0.7) Basophils # (Auto) 0.0 x10^3/uL (0.0-0.2) Sodium Level 143 mmol/L (136-145) Potassium Level 4.0 mmol/L (3.5-5.1) Chloride Level 107 mmol/L (98-107) Carbon Dioxide Level 27 mmol/L (21-32) Anion Gap 9 (6-14) Blood Urea Nitrogen 26 mg/dL (7-20) Creatinine 0.7 mg/dL (0.6-1.0) Estimated GFR (Cockcroft-Gault) 87.2 Glucose Level 109 mg/dL (70-99) Calcium Level 9.1 mg/dL (8.5-10.1) Microbiology 09/03/17 Urine Culture - Final, Complete 09/03/17 Urine Culture Result 1 (MEGHANA) - Final, Complete 09/03/17 Antimicrobic Susceptibility - Final, Complete Medications Current Medications Fentanyl Citrate (Fentanyl 2ml Vial) 50 mcg PRN Q15MIN PRN IV PAIN GREATER THAN 3/10 Last administered on 09/03/17 11:41; Start 09/03/17 at 10:30; Stop 09/03/17 at 14:14; Status DC Ondansetron HCl (Zofran) 4 mg 1X ONCE IV ; Start 09/03/17 at 10:30; Stop at 10:31; Status DC Promethazine HCl 12.5 mg/Sodium Chloride 50.5 ml @ 151.5 mls/ hr PRN Q6HRS PRN IV NAUSEA/VOMITING Last administered on 09/05/17 08:45; Start 09/03/17 at 11:00 Fentanyl Citrate (Fentanyl 2ml Vial) 50 mcg PRN Q2HR PRN IV PAIN Last administered on 09/06/17 04:34; Start 09/03/17 at 12:00 Ketorolac Tromethamine (Toradol) 30 mg PRN Q6HRS PRN IV PAIN Last administered on 09/03/17 22:08; Start 09/03/17 at 12:00; Stop 09/08/17 at 11:59 Acetaminophen/ Hydrocodone Bitart (Lortab 7.5/325) 2 tab PRN Q6HRS PRN PO PAIN Last administered on 09/05/17 15:13; Start 09/03/17 at 12:00 Linaclotide (Linzess) 145 mcg DAILY PO Last administered on 09/06/17 09:10; Start 09/03/17 at 13:00 Methocarbamol (Robaxin) 750 mg QID PO Last administered on 09/06/17 09:10; Start 09/03/17 at 13:00 Promethazine HCl (Phenergan) 12.5 mg PRN Q6HRS PRN PO NAUSEA; Start 09/03/17 at 12:00 Vitamin D (Vitamin D3) 5,000 unit DAILY PO Last administered on 09/06/17 09: 10; Start 09/03/17 at 13:00 Lisinopril (Prinivil) 20 mg HS PO Last administered on 09/05/17 20:45; Start 09/03/17 at 21:00 Oxycodone/ Acetaminophen (Percocet 10/325) 1 tab PRN Q4HRS PRN PO pain; Start 09/03/17 at 12:00; Stop 09/04/17 at 10:38; Status DC Oxycodone/ Acetaminophen (Percocet 5/325) 1 tab PRN Q4HRS PRN PO PAIN Last administered on 09/06/17 04:34; Start 09/03/17 at 12:00 Magnesium Hydroxide (Milk Of Magnesia) 2,400 mg PRN DAILY PRN PO CONSTIPATION; Start 09/03/17 at 12:00 Docusate Sodium (Colace) 100 mg DAILY PO ; Start 09/03/17 at 13:00; Stop 09/03 at 14:14; Status DC Polyethylene Glycol (miraLAX PACKET) 17 gm DAILY PO Last administered on 09:11; Start 09/03/17 at 13:00 Fentanyl Citrate (Fentanyl 2ml Vial) 50 mcg PRN Q2HR PRN IV PAIN; Start at 12:15; Stop 09/04/17 at 12:14; Status DC Hydromorphone HCl (Dilaudid) 1 mg PRN Q4HRS PRN IVP PAIN Last administered on 09/03/17 12:45; Start 09/03/17 at 12:30; Stop 09/03/17 at 14:14; Status DC Docusate Sodium (Colace) 100 mg BID PO Last administered on 09/06/17 09:10; Start 09/03/17 at 21:00 Hydromorphone HCl (Dilaudid) 1 mg PRN Q3HRS PRN IVP PAIN Last administered on 09/04/17 09:19; Start 09/03/17 at 14:15; Stop 09/04/17 at 10:38; Status DC Naproxen (Naprosyn) 500 mg BIDWMEALS PO Last administered on 09/03/17 16:44; Start 09/03/17 at 17:00; Stop 09/04/17 at 09:05; Status DC Ondansetron HCl (Zofran) 4 mg PRN Q6HRS PRN IV NAUSEA/VOMITING; Start at 09:00 Methylprednisolone (Medrol) 8 mg BID PO ; Start 09/04/17 at 09:00; Stop at 09:38; Status DC Methylprednisolone (Medrol) 4 mg BIDPCLD PO ; Start 09/04/17 at 12:30; Stop at 12:30; Status DC Methylprednisolone (Medrol) 4 mg TIDPC PO ; Start 09/05/17 at 08:30; Stop at 08:30; Status DC Methylprednisolone (Medrol) 8 mg QHS PO ; Start 09/05/17 at 21:00; Stop at 21:00; Status DC Methylprednisolone (Medrol) 4 mg QIDAFTMEAL PO ; Start 09/06/17 at 09:00; Stop 09/06/17 at 09:00; Status DC Methylprednisolone (Medrol) 4 mg TID PO ; Start 09/07/17 at 09:00; Stop at 09:00; Status DC Methylprednisolone (Medrol) 4 mg BID PO ; Start 09/08/17 at 09:00; Stop at 09:00; Status DC Methylprednisolone (Medrol) 4 mg DAILY PO ; Start 09/09/17 at 09:00; Stop at 09:00; Status DC Gabapentin (Neurontin) 300 mg TID PO Last administered on 09/06/17 09:10; Start 09/04/17 at 09:00 Oxycodone HCl (OxyCONTIN) 10 mg Q12HR PO Last administered on 09/06/17 09:10 ; Start 09/04/17 at 09:00 Dexamethasone Sodium Phosphate (Decadron) 4 mg Q6HRS IV Last administered on 13:40; Start 09/04/17 at 12:00; Stop 09/05/17 at 12:00; Status DC Hydromorphone HCl (Dilaudid) 1 mg PRN Q4HRS PRN IVP PAIN Last administered on 09/05/17 06:11; Start 09/04/17 at 10:45 Bacitracin 68772 unit/Sodium Chloride 1,000 ml @ 1,000 mls/hr 1X PERIOP ONCE IRR Last administered on 09/05/17 09:35; Start 09/05/17 at 06:00; Stop at 06:59; Status DC Vancomycin HCl 1 gm/Sodium Chloride 250 ml @ 166.667 mls/hr 1X PREOP IV ; Start 09/05/17 at 07:00; Status UNV Vancomycin HCl 250 ml @ 250 mls/hr 1X PREOP PRN IV PRIOR TO PROCEDURE Last administered on 09/05/17 09:15; Start 09/05/17 at 06:00; Stop 09/05/17 at 18 :00; Status DC Ondansetron HCl (Zofran) 4 mg PRN Q6HRS PRN IV NAUSEA/VOMITING; Start at 07:00; Stop 09/06/17 at 06:59; Status DC Fentanyl Citrate (Fentanyl 2ml Vial) 25 mcg PRN Q5MIN PRN IV MILD PAIN; Start 09/05/17 at 07:00; Stop 09/06/17 at 06:59; Status DC Fentanyl Citrate (Fentanyl 2ml Vial) 50 mcg PRN Q5MIN PRN IV MODERATE PAIN Last administered on 09/05/17 11:48; Start 09/05/17 at 07:00; Stop 09/06/17 at 06:59; Status DC Morphine Sulfate 1 mg PRN Q10MIN PRN IV SEVERE PAIN; Start 09/05/17 at 07:00; Stop 09/06/17 at 06:59; Status DC Ringer's Solution 1,000 ml @ 30 mls/hr Q24H IV ; Start 09/05/17 at 07:00; Stop 09/05/17 at 18:59; Status DC Lidocaine HCl (Xylocaine-Mpf 1% Vial) 2 ml PRN 1X PRN ID IV START; Start 09/05 at 07:00; Stop 09/06/17 at 06:59; Status DC Hydromorphone HCl (Dilaudid) 0.5 mg PRN Q10MIN PRN IV SEV PAIN, Second choice Last administered on 09/05/17 12:12; Start 09/05/17 at 07:00; Stop 09/06/17 at 06:59; Status DC Gelatin (Gelfoam Size 100) 1 each STK-MED ONCE .ROUTE Last administered on 09:35; Start 09/05/17 at 05:54; Stop 09/05/17 at 06:55; Status DC Bupivacaine HCl/ Epinephrine Bitart (Sensorcain-Mpf Epi 0.5%-1:[id number]) 10 ml STK -MED ONCE .ROUTE Last administered on 09/05/17 09:35; Start 09/05/17 at 05: 55; Stop 09/05/17 at 06:55; Status DC Ketorolac Tromethamine (Toradol For Or Only) 60 mg STK-MED ONCE .ROUTE Last administered on 09/05/17 09:35; Start 09/05/17 at 05:55; Stop 09/05/17 at 06 :55; Status DC Thrombin 20,000 unit STK-MED ONCE TP Last administered on 09/05/17 09:35; Start 09/05/17 at 05:55; Stop 09/05/17 at 06:55; Status DC Scopolamine (Transderm-Scop) 1 patch STK-MED ONCE TD ; Start 09/05/17 at 07:49 ; Stop 09/05/17 at 07:50; Status DC Scopolamine (Transderm-Scop) 1 patch 1X PERIOP PRN TD NAUSEA Last administered on 09/05/17 07:50; Start 09/05/17 at 08:00 Remifentanil HCl (Ultiva) 2 mg STK-MED ONCE IV ; Start 09/05/17 at 08:09; Stop 09/05/17 at 08:10; Status DC Fentanyl Citrate (Fentanyl 2ml Vial) 100 mcg STK-MED ONCE .ROUTE ; Start at 08:10; Stop 09/05/17 at 08:11; Status DC Phenylephrine HCl (Guido-Synephrine Inj) 10 mg STK-MED ONCE .ROUTE ; Start at 08:10; Stop 09/05/17 at 08:11; Status DC Desflurane (Suprane) 90 ml STK-MED ONCE IH ; Start 09/05/17 at 08:10; Stop at 08:11; Status DC Propofol 20 ml @ As Directed STK-MED ONCE IV ; Start 09/05/17 at 08:10; Stop 09/05/17 at 08:11; Status DC Dexamethasone Sodium Phosphate (Decadron) 20 mg STK-MED ONCE .ROUTE ; Start at 08:10; Stop 09/05/17 at 08:11; Status DC Propofol 50 ml @ As Directed STK-MED ONCE IV ; Start 09/05/17 at 08:10; Stop 09/05/17 at 08:11; Status DC Lidocaine HCl (Lidocaine Pf 2% Vial) 5 ml STK-MED ONCE .ROUTE ; Start 09/05/17 at 08:10; Stop 09/05/17 at 08:11; Status DC Ondansetron HCl (Zofran) 4 mg STK-MED ONCE .ROUTE ; Start 09/05/17 at 08:10; Stop 09/05/17 at 08:11; Status DC Midazolam HCl (Versed) 2 mg STK-MED ONCE .ROUTE ; Start 09/05/17 at 08:22; Stop 09/05/17 at 08:23; Status DC Ephedrine Sulfate (Akovaz) 50 mg STK-MED ONCE .ROUTE ; Start 09/05/17 at 08:49 ; Stop 09/05/17 at 08:50; Status DC Glycopyrrolate (Robinul) 1 mg STK-MED ONCE .ROUTE ; Start 09/05/17 at 08:55; Stop 09/05/17 at 08:56; Status DC Propofol 50 ml @ As Directed STK-MED ONCE IV ; Start 09/05/17 at 09:52; Stop 09/05/17 at 09:53; Status DC Active Scripts Active Robaxin-750 (Methocarbamol) 750 Mg Tablet 750 Mg PO QID Hydrocodone-Apap 7.5-325 (Hydrocodone Bit/Acetaminophen) 1 Each Tablet 2 Tab PO PRN Q6HRS PRN Reported Promethazine Hcl 12.5 Mg Tablet 1 Tab PO Q6HRS PRN Vitamin D3 (Cholecalciferol (Vitamin D3)) 5,000 Unit Tablet 5,000 Unit PO DAILY Linzess (Linaclotide) 145 Mcg Capsule 145 Mcg PO Lisinopril 20 Mg Tablet 1 Tab PO HS Vitals/I & O Vital Sign - Last 24 Hours 09/05/17 09/05/17 09/05/17 09/05/17 11:06 11:10 11:21 11:24 Temp 98.4 98.4 Pulse 115 118 Resp 16 16 B/P (MAP) 128/65 125/76 Pulse Ox 100 O2 Delivery Simple Mask Room Air Simple Mask O2 Flow Rate 10 10 10 09/05/17 09/05/17 09/05/17 09/05/17 11:36 11:51 11:52 12:12 Temp 97.7 97.7 Pulse 112 116 Resp 16 16 16 12 B/P (MAP) 131/70 129/68 Pulse Ox 99 97 O2 Delivery Room Air Room Air Room Air 09/05/17 09/05/17 09/05/17 09/05/17 13:15 13:30 13:45 14:00 Temp 96.6 96.6 Pulse 128 119 120 127 Resp 18 18 18 18 B/P (MAP) 125/65 (85) 131/71 (91) 100/59 (73) 118/69 (85) Pulse Ox 96 97 98 96 O2 Delivery Room Air Room Air Room Air Room Air 09/05/17 09/05/17 09/05/17 09/05/17 14:30 15:00 15:13 16:00 Pulse 119 Resp 18 18 18 B/P (MAP) 108/47 (67) 103/54 (70) 106/58 (74) Pulse Ox 97 95 96 O2 Delivery Room Air Room Air Room Air Room Air 09/05/17 09/05/17 09/05/17 09/05/17 16:13 17:00 18:01 19:00 Temp 96.4 96.4 Pulse 90 Resp 18 20 B/P (MAP) 99/46 (63) 104/54 (71) Pulse Ox 96 94 O2 Delivery Room Air Room Air Room Air Room Air 09/05/17 09/05/17 09/05/17 09/05/17 20:15 20:44 20:45 20:46 Pulse 90 Resp 20 20 B/P (MAP) 104/54 Pulse Ox 95 95 O2 Delivery Room Air Room Air Room Air 09/05/17 09/06/17 09/06/17 09/06/17 23:00 00:45 03:00 04:34 Temp 97.7 97.8 97.7 97.8 Pulse 86 58 Resp 18 20 18 20 B/P (MAP) 85/53 (64) 93/55 (68) Pulse Ox 95 95 93 93 O2 Delivery Room Air Room Air Room Air Room Air 09/06/17 09/06/17 09/06/17 09/06/17 04:34 05:05 05:34 07:45 Temp 97.9 97.9 Pulse 85 Resp 20 20 20 18 B/P (MAP) 99/56 (70) Pulse Ox 93 93 93 98 O2 Delivery Room Air Room Air Room Air Room Air 09/06/17 09:10 Pulse Ox 98 O2 Delivery Room Air Intake and Output 09/06/17 09/06/17 09/07/17 14:59 22:59 06:59 Intake Total 120 ml Balance 120 ml LYDIA DIAMOND MD Sep 06, 2017 09:56
[2017-09-06] MEDS ORDERED: fentaNYL 25MCG/HR PATCH 1 PATCH PATCH.TD72 TD SCH (10:00)
[2017-09-06 10:40] VITALS: BP 110/62
[2017-09-06] MEDS ORDERED: FENT1PAT15 TD (11:30)
[2017-09-06] MEDS ORDERED: GABA-586 PO (11:30)
[2017-09-06] MEDS ORDERED: SODIUM PHOSPHATES 19/7GM 133 ML ENEMA. PR ONE (11:30)
--- NOTE | 2017-09-06 11:34 | PDOC3 ---
Discharge Summary Visit Information Date of Admission: Sep 03, 2017 Date of Discharge: Sep 06, 2017 Admitting Diagnosis Comment: 1. Recurrent L4-L5 disc bulge s.p re do sx x 4 (09/05) 2. Foot neuropathy RT 3. COnstipation from narcotics Brief Hospital Course Allergies Allergies Coded Allergies Type Severity Reaction Last Updated Verified miconazole Allergy Intermediate 08/28/17 Yes prochlorperazine Allergy Intermediate TOLERATES PROMETHAZINE 08/29/17 Yes sulfamethoxazole Allergy Intermediate 08/28/17 Yes tioconazole Allergy Intermediate 08/29/17 Yes trimethoprim Allergy Intermediate 08/28/17 Yes zolpidem Adverse Reaction Intermediate 08/28/17 Yes Vital Signs Vital Signs Date Time Temp Pulse Resp B/P (MAP) Pulse Ox O2 Delivery O2 Flow Rate FiO2 09/06/17 11:15 98 Room Air 09/06/17 10:40 97.9 78 20 110/62 (78) 97.9 09/05/17 11:21 10 Lab Results Laboratory Tests Test 09/06/17 04:25 White Blood Count 13.3 x10^3/uL (4.0-11.0) Red Blood Count 3.40 x10^6/uL (3.50-5.40) Hemoglobin 10.4 g/dL (12.0-15.5) Hematocrit 29.9 % (36.0-47.0) Mean Corpuscular Volume 88 fL (79-100) Mean Corpuscular Hemoglobin 31 pg (25-35) Mean Corpuscular Hemoglobin Concent 35 g/dL (31-37) Red Cell Distribution Width 12.8 % (11.5-14.5) Platelet Count 323 x10^3/uL (140-400) Neutrophils (%) (Auto) 86 % (31-73) Lymphocytes (%) (Auto) 7 % (24-48) Monocytes (%) (Auto) 6 % (0-9) Eosinophils (%) (Auto) 0 % (0-3) Basophils (%) (Auto) 0 % (0-3) Neutrophils # (Auto) 11.5 x10^3uL (1.8-7.7) Lymphocytes # (Auto) 1.0 x10^3/uL (1.0-4.8) Monocytes # (Auto) 0.8 x10^3/uL (0.0-1.1) Eosinophils # (Auto) 0.0 x10^3/uL (0.0-0.7) Basophils # (Auto) 0.0 x10^3/uL (0.0-0.2) Segmented Neutrophils % 87 % (35-66) Lymphocytes % 7 % (24-48) Monocytes % 6 % (0-10) Platelet Estimate Adequate (ADEQUATE) Sodium Level 143 mmol/L (136-145) Potassium Level 4.0 mmol/L (3.5-5.1) Chloride Level 107 mmol/L (98-107) Carbon Dioxide Level 27 mmol/L (21-32) Anion Gap 9 (6-14) Blood Urea Nitrogen 26 mg/dL (7-20) Creatinine 0.7 mg/dL (0.6-1.0) Estimated GFR (Cockcroft-Gault) 87.2 Glucose Level 109 mg/dL (70-99) Calcium Level 9.1 mg/dL (8.5-10.1) Laboratory Tests Test 09/06/17 04:25 White Blood Count 13.3 x10^3/uL (4.0-11.0) Red Blood Count 3.40 x10^6/uL (3.50-5.40) Hemoglobin 10.4 g/dL (12.0-15.5) Hematocrit 29.9 % (36.0-47.0) Mean Corpuscular Volume 88 fL (79-100) Mean Corpuscular Hemoglobin 31 pg (25-35) Mean Corpuscular Hemoglobin Concent 35 g/dL (31-37) Red Cell Distribution Width 12.8 % (11.5-14.5) Platelet Count 323 x10^3/uL (140-400) Neutrophils (%) (Auto) 86 % (31-73) Lymphocytes (%) (Auto) 7 % (24-48) Monocytes (%) (Auto) 6 % (0-9) Eosinophils (%) (Auto) 0 % (0-3) Basophils (%) (Auto) 0 % (0-3) Neutrophils # (Auto) 11.5 x10^3uL (1.8-7.7) Lymphocytes # (Auto) 1.0 x10^3/uL (1.0-4.8) Monocytes # (Auto) 0.8 x10^3/uL (0.0-1.1) Eosinophils # (Auto) 0.0 x10^3/uL (0.0-0.7) Basophils # (Auto) 0.0 x10^3/uL (0.0-0.2) Segmented Neutrophils % 87 % (35-66) Lymphocytes % 7 % (24-48) Monocytes % 6 % (0-10) Platelet Estimate Adequate (ADEQUATE) Sodium Level 143 mmol/L (136-145) Potassium Level 4.0 mmol/L (3.5-5.1) Chloride Level 107 mmol/L (98-107) Carbon Dioxide Level 27 mmol/L (21-32) Anion Gap 9 (6-14) Blood Urea Nitrogen 26 mg/dL (7-20) Creatinine 0.7 mg/dL (0.6-1.0) Estimated GFR (Cockcroft-Gault) 87.2 Glucose Level 109 mg/dL (70-99) Calcium Level 9.1 mg/dL (8.5-10.1) Brief Hospital Course Ms. Do is a 52 old female whose back issues started after lifting heavy at work, has had 3 back sx in same spot by our neurosx team,comes in again bec of intractable back pain with new neuropathy Rt foot, RE imaging with MRI showed protruding recurrent disc bulge that needed oR again, BEtter post op. CO managed with physiatry, WIll go home on fentanyl patch and gabapentin and her home percocet. Ff up Farzaneh as instructed SOme constipation, on linzess etc at home Will give some enema prior to home today OP PT with walker Rx provided., Seen and examined Dc 32 mins Discharge Information Condition at Discharge: Improved, Stable Disposition/Orders: D/C to Home Scheduled Cholecalciferol (Vitamin D3) (Vitamin D3), 5,000 UNIT PO DAILY, (Reported) Lisinopril (Lisinopril), 1 TAB PO HS, (Reported) Methocarbamol (Robaxin-750), 750 MG PO QID Scheduled PRN Hydrocodone Bit/Acetaminophen (Hydrocodone-Apap 7.5-325 ), 2 TAB PO PRN Q6HRS PRN for PAIN Promethazine Hcl (Promethazine Hcl), 1 TAB PO Q6HRS PRN for NAUSEA, (Reported) Miscellaneous Medications Linaclotide (Linzess), 145 MCG PO, (Reported) CADY PAZ MD Sep 06, 2017 11:34
--- NOTE | 2017-09-06 12:41 | PDOC ---
PROGRESS NOTES Subjective Subjective POD #1 back and right leg pain significantly improved wants to go home Objective Objective Vital Signs Date Time Temp Pulse Resp B/P (MAP) Pulse Ox O2 Delivery O2 Flow Rate FiO2 09/06/17 11:15 98 Room Air 09/06/17 10:40 97.9 78 20 110/62 (78) 97.9 09/05/17 11:21 10 Intake and Output 09/07/17 07:00 Intake Total 120 ml Balance 120 ml Intake Oral 120 ml Physical Exam General: Alert, Oriented X3, Cooperative, No acute distress MUSCULOSKELETAL: Other (oliver) Neuro: Other (Strength 5/5 in BLE) Skin: Other (Dressing C,D,I, flat) Plan Plan of Care may dc home f/u 2 weeks Comment Review of Relevant I have reviewed the following items shelly (where applicable) has been applied. Labs Laboratory Tests Test 09/06/17 04:25 White Blood Count 13.3 x10^3/uL (4.0-11.0) Red Blood Count 3.40 x10^6/uL (3.50-5.40) Hemoglobin 10.4 g/dL (12.0-15.5) Hematocrit 29.9 % (36.0-47.0) Mean Corpuscular Volume 88 fL (79-100) Mean Corpuscular Hemoglobin 31 pg (25-35) Mean Corpuscular Hemoglobin Concent 35 g/dL (31-37) Red Cell Distribution Width 12.8 % (11.5-14.5) Platelet Count 323 x10^3/uL (140-400) Neutrophils (%) (Auto) 86 % (31-73) Lymphocytes (%) (Auto) 7 % (24-48) Monocytes (%) (Auto) 6 % (0-9) Eosinophils (%) (Auto) 0 % (0-3) Basophils (%) (Auto) 0 % (0-3) Neutrophils # (Auto) 11.5 x10^3uL (1.8-7.7) Lymphocytes # (Auto) 1.0 x10^3/uL (1.0-4.8) Monocytes # (Auto) 0.8 x10^3/uL (0.0-1.1) Eosinophils # (Auto) 0.0 x10^3/uL (0.0-0.7) Basophils # (Auto) 0.0 x10^3/uL (0.0-0.2) Segmented Neutrophils % 87 % (35-66) Lymphocytes % 7 % (24-48) Monocytes % 6 % (0-10) Platelet Estimate Adequate (ADEQUATE) Sodium Level 143 mmol/L (136-145) Potassium Level 4.0 mmol/L (3.5-5.1) Chloride Level 107 mmol/L (98-107) Carbon Dioxide Level 27 mmol/L (21-32) Anion Gap 9 (6-14) Blood Urea Nitrogen 26 mg/dL (7-20) Creatinine 0.7 mg/dL (0.6-1.0) Estimated GFR (Cockcroft-Gault) 87.2 Glucose Level 109 mg/dL (70-99) Calcium Level 9.1 mg/dL (8.5-10.1) Laboratory Tests Test 09/06/17 04:25 White Blood Count 13.3 x10^3/uL (4.0-11.0) Red Blood Count 3.40 x10^6/uL (3.50-5.40) Hemoglobin 10.4 g/dL (12.0-15.5) Hematocrit 29.9 % (36.0-47.0) Mean Corpuscular Volume 88 fL (79-100) Mean Corpuscular Hemoglobin 31 pg (25-35) Mean Corpuscular Hemoglobin Concent 35 g/dL (31-37) Red Cell Distribution Width 12.8 % (11.5-14.5) Platelet Count 323 x10^3/uL (140-400) Neutrophils (%) (Auto) 86 % (31-73) Lymphocytes (%) (Auto) 7 % (24-48) Monocytes (%) (Auto) 6 % (0-9) Eosinophils (%) (Auto) 0 % (0-3) Basophils (%) (Auto) 0 % (0-3) Neutrophils # (Auto) 11.5 x10^3uL (1.8-7.7) Lymphocytes # (Auto) 1.0 x10^3/uL (1.0-4.8) Monocytes # (Auto) 0.8 x10^3/uL (0.0-1.1) Eosinophils # (Auto) 0.0 x10^3/uL (0.0-0.7) Basophils # (Auto) 0.0 x10^3/uL (0.0-0.2) Segmented Neutrophils % 87 % (35-66) Lymphocytes % 7 % (24-48) Monocytes % 6 % (0-10) Platelet Estimate Adequate (ADEQUATE) Sodium Level 143 mmol/L (136-145) Potassium Level 4.0 mmol/L (3.5-5.1) Chloride Level 107 mmol/L (98-107) Carbon Dioxide Level 27 mmol/L (21-32) Anion Gap 9 (6-14) Blood Urea Nitrogen 26 mg/dL (7-20) Creatinine 0.7 mg/dL (0.6-1.0) Estimated GFR (Cockcroft-Gault) 87.2 Glucose Level 109 mg/dL (70-99) Calcium Level 9.1 mg/dL (8.5-10.1) Microbiology 09/03/17 Urine Culture - Final, Complete 09/03/17 Urine Culture Result 1 (MEGHANA) - Final, Complete 09/03/17 Antimicrobic Susceptibility - Final, Complete Medications Current Medications Fentanyl Citrate (Fentanyl 2ml Vial) 50 mcg PRN Q15MIN PRN IV PAIN GREATER THAN 3/10 Last administered on 09/03/17 11:41; Start 09/03/17 at 10:30; Stop 09/03/17 at 14:14; Status DC Ondansetron HCl (Zofran) 4 mg 1X ONCE IV ; Start 09/03/17 at 10:30; Stop at 10:31; Status DC Promethazine HCl 12.5 mg/Sodium Chloride 50.5 ml @ 151.5 mls/ hr PRN Q6HRS PRN IV NAUSEA/VOMITING Last administered on 09/05/17 08:45; Start 09/03/17 at 11:00 Fentanyl Citrate (Fentanyl 2ml Vial) 50 mcg PRN Q2HR PRN IV PAIN Last administered on 09/06/17 04:34; Start 09/03/17 at 12:00 Ketorolac Tromethamine (Toradol) 30 mg PRN Q6HRS PRN IV PAIN Last administered on 09/03/17 22:08; Start 09/03/17 at 12:00; Stop 09/08/17 at 11:59 Acetaminophen/ Hydrocodone Bitart (Lortab 7.5/325) 2 tab PRN Q6HRS PRN PO PAIN Last administered on 09/05/17 15:13; Start 09/03/17 at 12:00 Linaclotide (Linzess) 145 mcg DAILY PO Last administered on 09/06/17 09:10; Start 09/03/17 at 13:00 Methocarbamol (Robaxin) 750 mg QID PO Last administered on 09/06/17 09:10; Start 09/03/17 at 13:00 Promethazine HCl (Phenergan) 12.5 mg PRN Q6HRS PRN PO NAUSEA; Start 09/03/17 at 12:00 Vitamin D (Vitamin D3) 5,000 unit DAILY PO Last administered on 09/06/17 09: 10; Start 09/03/17 at 13:00 Lisinopril (Prinivil) 20 mg HS PO Last administered on 09/05/17 20:45; Start 09/03/17 at 21:00 Oxycodone/ Acetaminophen (Percocet 10/325) 1 tab PRN Q4HRS PRN PO pain; Start 09/03/17 at 12:00; Stop 09/04/17 at 10:38; Status DC Oxycodone/ Acetaminophen (Percocet 5/325) 1 tab PRN Q4HRS PRN PO PAIN Last administered on 09/06/17 04:34; Start 09/03/17 at 12:00 Magnesium Hydroxide (Milk Of Magnesia) 2,400 mg PRN DAILY PRN PO CONSTIPATION; Start 09/03/17 at 12:00 Docusate Sodium (Colace) 100 mg DAILY PO ; Start 09/03/17 at 13:00; Stop 09/03 at 14:14; Status DC Polyethylene Glycol (miraLAX PACKET) 17 gm DAILY PO Last administered on 09:11; Start 09/03/17 at 13:00 Fentanyl Citrate (Fentanyl 2ml Vial) 50 mcg PRN Q2HR PRN IV PAIN; Start at 12:15; Stop 09/04/17 at 12:14; Status DC Hydromorphone HCl (Dilaudid) 1 mg PRN Q4HRS PRN IVP PAIN Last administered on 09/03/17 12:45; Start 09/03/17 at 12:30; Stop 09/03/17 at 14:14; Status DC Docusate Sodium (Colace) 100 mg BID PO Last administered on 09/06/17 09:10; Start 09/03/17 at 21:00 Hydromorphone HCl (Dilaudid) 1 mg PRN Q3HRS PRN IVP PAIN Last administered on 09/04/17 09:19; Start 09/03/17 at 14:15; Stop 09/04/17 at 10:38; Status DC Naproxen (Naprosyn) 500 mg BIDWMEALS PO Last administered on 09/03/17 16:44; Start 09/03/17 at 17:00; Stop 09/04/17 at 09:05; Status DC Ondansetron HCl (Zofran) 4 mg PRN Q6HRS PRN IV NAUSEA/VOMITING; Start at 09:00 Methylprednisolone (Medrol) 8 mg BID PO ; Start 09/04/17 at 09:00; Stop at 09:38; Status DC Methylprednisolone (Medrol) 4 mg BIDPCLD PO ; Start 09/04/17 at 12:30; Stop at 12:30; Status DC Methylprednisolone (Medrol) 4 mg TIDPC PO ; Start 09/05/17 at 08:30; Stop at 08:30; Status DC Methylprednisolone (Medrol) 8 mg QHS PO ; Start 09/05/17 at 21:00; Stop at 21:00; Status DC Methylprednisolone (Medrol) 4 mg QIDAFTMEAL PO ; Start 09/06/17 at 09:00; Stop 09/06/17 at 09:00; Status DC Methylprednisolone (Medrol) 4 mg TID PO ; Start 09/07/17 at 09:00; Stop at 09:00; Status DC Methylprednisolone (Medrol) 4 mg BID PO ; Start 09/08/17 at 09:00; Stop at 09:00; Status DC Methylprednisolone (Medrol) 4 mg DAILY PO ; Start 09/09/17 at 09:00; Stop at 09:00; Status DC Gabapentin (Neurontin) 300 mg TID PO Last administered on 09/06/17 09:10; Start 09/04/17 at 09:00 Oxycodone HCl (OxyCONTIN) 10 mg Q12HR PO Last administered on 09/06/17 09:10 ; Start 09/04/17 at 09:00; Stop 09/06/17 at 09:51; Status DC Dexamethasone Sodium Phosphate (Decadron) 4 mg Q6HRS IV Last administered on 13:40; Start 09/04/17 at 12:00; Stop 09/05/17 at 12:00; Status DC Hydromorphone HCl (Dilaudid) 1 mg PRN Q4HRS PRN IVP PAIN Last administered on 09/05/17 06:11; Start 09/04/17 at 10:45 Bacitracin 57941 unit/Sodium Chloride 1,000 ml @ 1,000 mls/hr 1X PERIOP ONCE IRR Last administered on 09/05/17 09:35; Start 09/05/17 at 06:00; Stop at 06:59; Status DC Vancomycin HCl 1 gm/Sodium Chloride 250 ml @ 166.667 mls/hr 1X PREOP IV ; Start 09/05/17 at 07:00; Status UNV Vancomycin HCl 250 ml @ 250 mls/hr 1X PREOP PRN IV PRIOR TO PROCEDURE Last administered on 09/05/17 09:15; Start 09/05/17 at 06:00; Stop 09/05/17 at 18 :00; Status DC Ondansetron HCl (Zofran) 4 mg PRN Q6HRS PRN IV NAUSEA/VOMITING; Start at 07:00; Stop 09/06/17 at 06:59; Status DC Fentanyl Citrate (Fentanyl 2ml Vial) 25 mcg PRN Q5MIN PRN IV MILD PAIN; Start 09/05/17 at 07:00; Stop 09/06/17 at 06:59; Status DC Fentanyl Citrate (Fentanyl 2ml Vial) 50 mcg PRN Q5MIN PRN IV MODERATE PAIN Last administered on 09/05/17 11:48; Start 09/05/17 at 07:00; Stop 09/06/17 at 06:59; Status DC Morphine Sulfate 1 mg PRN Q10MIN PRN IV SEVERE PAIN; Start 09/05/17 at 07:00; Stop 09/06/17 at 06:59; Status DC Ringer's Solution 1,000 ml @ 30 mls/hr Q24H IV ; Start 09/05/17 at 07:00; Stop 09/05/17 at 18:59; Status DC Lidocaine HCl (Xylocaine-Mpf 1% Vial) 2 ml PRN 1X PRN ID IV START; Start 09/05 at 07:00; Stop 09/06/17 at 06:59; Status DC Hydromorphone HCl (Dilaudid) 0.5 mg PRN Q10MIN PRN IV SEV PAIN, Second choice Last administered on 09/05/17 12:12; Start 09/05/17 at 07:00; Stop 09/06/17 at 06:59; Status DC Gelatin (Gelfoam Size 100) 1 each STK-MED ONCE .ROUTE Last administered on 09:35; Start 09/05/17 at 05:54; Stop 09/05/17 at 06:55; Status DC Bupivacaine HCl/ Epinephrine Bitart (Sensorcain-Mpf Epi 0.5%-1:[id number]) 10 ml STK -MED ONCE .ROUTE Last administered on 09/05/17 09:35; Start 09/05/17 at 05: 55; Stop 09/05/17 at 06:55; Status DC Ketorolac Tromethamine (Toradol For Or Only) 60 mg STK-MED ONCE .ROUTE Last administered on 09/05/17 09:35; Start 09/05/17 at 05:55; Stop 09/05/17 at 06 :55; Status DC Thrombin 20,000 unit STK-MED ONCE TP Last administered on 09/05/17 09:35; Start 09/05/17 at 05:55; Stop 09/05/17 at 06:55; Status DC Scopolamine (Transderm-Scop) 1 patch STK-MED ONCE TD ; Start 09/05/17 at 07:49 ; Stop 09/05/17 at 07:50; Status DC Scopolamine (Transderm-Scop) 1 patch 1X PERIOP PRN TD NAUSEA Last administered on 09/05/17 07:50; Start 09/05/17 at 08:00 Remifentanil HCl (Ultiva) 2 mg STK-MED ONCE IV ; Start 09/05/17 at 08:09; Stop 09/05/17 at 08:10; Status DC Fentanyl Citrate (Fentanyl 2ml Vial) 100 mcg STK-MED ONCE .ROUTE ; Start at 08:10; Stop 09/05/17 at 08:11; Status DC Phenylephrine HCl (Guido-Synephrine Inj) 10 mg STK-MED ONCE .ROUTE ; Start at 08:10; Stop 09/05/17 at 08:11; Status DC Desflurane (Suprane) 90 ml STK-MED ONCE IH ; Start 09/05/17 at 08:10; Stop at 08:11; Status DC Propofol 20 ml @ As Directed STK-MED ONCE IV ; Start 09/05/17 at 08:10; Stop 09/05/17 at 08:11; Status DC Dexamethasone Sodium Phosphate (Decadron) 20 mg STK-MED ONCE .ROUTE ; Start at 08:10; Stop 09/05/17 at 08:11; Status DC Propofol 50 ml @ As Directed STK-MED ONCE IV ; Start 09/05/17 at 08:10; Stop 09/05/17 at 08:11; Status DC Lidocaine HCl (Lidocaine Pf 2% Vial) 5 ml STK-MED ONCE .ROUTE ; Start 09/05/17 at 08:10; Stop 09/05/17 at 08:11; Status DC Ondansetron HCl (Zofran) 4 mg STK-MED ONCE .ROUTE ; Start 09/05/17 at 08:10; Stop 09/05/17 at 08:11; Status DC Midazolam HCl (Versed) 2 mg STK-MED ONCE .ROUTE ; Start 09/05/17 at 08:22; Stop 09/05/17 at 08:23; Status DC Ephedrine Sulfate (Akovaz) 50 mg STK-MED ONCE .ROUTE ; Start 09/05/17 at 08:49 ; Stop 09/05/17 at 08:50; Status DC Glycopyrrolate (Robinul) 1 mg STK-MED ONCE .ROUTE ; Start 09/05/17 at 08:55; Stop 09/05/17 at 08:56; Status DC Propofol 50 ml @ As Directed STK-MED ONCE IV ; Start 09/05/17 at 09:52; Stop 09/05/17 at 09:53; Status DC Fentanyl (Duragesic 25mcg/ Hr Patch) 1 patch Q3DAYS TD Last administered on t 11:15; Start 09/06/17 at 10:00 Sodium Monofluorophosphate (Fleet Adult) 133 ml 1X ONCE MA ; Start 09/06/17 at 11:30; Stop 09/06/17 at 11:31; Status DC Active Scripts Active FENTANYL 25mcg/hr (Fentanyl) 1 Each Patch.td72 1 Patch TD Q72H 14 Days Gabapentin 300 Mg Capsule 300 Mg PO TID 60 Days Robaxin-750 (Methocarbamol) 750 Mg Tablet 750 Mg PO QID Hydrocodone-Apap 7.5-325 (Hydrocodone Bit/Acetaminophen) 1 Each Tablet 2 Tab PO PRN Q6HRS PRN Reported Promethazine Hcl 12.5 Mg Tablet 1 Tab PO Q6HRS PRN Vitamin D3 (Cholecalciferol (Vitamin D3)) 5,000 Unit Tablet 5,000 Unit PO DAILY Linzess (Linaclotide) 145 Mcg Capsule 145 Mcg PO Lisinopril 20 Mg Tablet 1 Tab PO HS Vitals/I & O Vital Sign - Last 24 Hours 09/05/17 09/05/17 09/05/17 09/05/17 13:15 13:30 13:45 14:00 Temp 96.6 96.6 Pulse 128 119 120 127 Resp 18 18 18 18 B/P (MAP) 125/65 (85) 131/71 (91) 100/59 (73) 118/69 (85) Pulse Ox 96 97 98 96 O2 Delivery Room Air Room Air Room Air Room Air 09/05/17 09/05/17 09/05/17 09/05/17 14:30 15:00 15:13 16:00 Pulse 119 Resp 18 18 18 B/P (MAP) 108/47 (67) 103/54 (70) 106/58 (74) Pulse Ox 97 95 96 O2 Delivery Room Air Room Air Room Air Room Air 09/05/17 09/05/17 09/05/17 09/05/17 16:13 17:00 18:01 19:00 Temp 96.4 96.4 Pulse 90 Resp 18 20 B/P (MAP) 99/46 (63) 104/54 (71) Pulse Ox 96 94 O2 Delivery Room Air Room Air Room Air Room Air 09/05/17 09/05/17 09/05/17 09/05/17 20:15 20:44 20:45 20:46 Pulse 90 Resp 20 20 B/P (MAP) 104/54 Pulse Ox 95 95 O2 Delivery Room Air Room Air Room Air 09/05/17 09/06/17 09/06/17 09/06/17 23:00 00:45 03:00 04:34 Temp 97.7 97.8 97.7 97.8 Pulse 86 58 Resp 18 20 18 20 B/P (MAP) 85/53 (64) 93/55 (68) Pulse Ox 95 95 93 93 O2 Delivery Room Air Room Air Room Air Room Air 09/06/17 09/06/17 09/06/17 09/06/17 04:34 05:05 05:34 07:45 Temp 97.9 97.9 Pulse 85 Resp 20 20 20 18 B/P (MAP) 99/56 (70) Pulse Ox 93 93 93 98 O2 Delivery Room Air Room Air Room Air Room Air 09/06/17 09/06/17 09/06/17 09/06/17 07:55 09:10 10:40 11:15 Temp 97.9 97.9 Pulse 78 Resp 20 B/P (MAP) 110/62 (78) Pulse Ox 98 99 98 O2 Delivery Room Air Room Air Room Air Room Air Intake and Output 09/06/17 09/06/17 09/07/17 15:00 23:00 07:00 Intake Total 120 ml Balance 120 ml JOSSELIN SANDHU MD Sep 06, 2017 12:41
--- NOTE | 2017-09-06 14:18 | PATHOLOGY ---
PATHOLOGY REPORT * * * * * * * * FINAL DIAGNOSIS: Segments of fibrocartilaginous tissue and bone, lumbar disc: - Degenerative changes of fibrocartilaginous tissue. COMMENT: There is no evidence of an acute inflammatory process or malignancy. (JPM:[email or web address]; 09/06/2017) REPORT ELECTRONICALLY SIGNED BY: Satya Ngo M.D. DATE/TIME: 09/06/2017 14:17 * * * * * * * * GROSS PATHOLOGY: Received in formalin labeled "Monik Do lumbar disc," are multiple segments of mario, rubbery, and gritty tissue measuring 1.6 x 1.5 x 0.5 cm in aggregate dimensions, containing small fragments of bone. The tissue is filtered and submitted entirely in cassette A1. (TSD; 09/05/2017) INITIAL CPT CODE(S): A; 73120, 09671 Professional services performed [place] [facility] [place] [address] Technical services performed by [facility] at [address] [place] [address], [facility] [address] [address]. SPECIMEN(S) RECEIVED: A.Lumbar disc CLINICAL HISTORY: Herniated disc PATIENT: MONIK DO /AGE: 706/05/1965 (Age: 52) PATIENT #: [id number] ALT CASE #: SPECIMEN COLLECTION DATE: 09/05/2017 SPECIMEN RECEIVED DATE: 09/05/2017 [facility] - [address] [place] [address] - PHONE: [phone] * * * END OF REPORT * * *
[2017-09-07] MEDS ORDERED: methylPREDNISolone 4 MG TABLET. PO SCH (09:00)
[2017-09-08] MEDS ORDERED: methylPREDNISolone 4 MG TABLET. PO SCH (09:00)
[2017-09-09] MEDS ORDERED: methylPREDNISolone 4 MG TABLET. PO SCH (09:00)
--- NOTE | 2017-09-13 00:16 | OP ---
DATE OF SURGERY: 09/05/2017 PREOPERATIVE DIAGNOSES: 1. Status post instrumented lumbar fusion. 2. Focal disc herniation, L5-S1, right with severe right lumbar radiculopathy. OPERATION PERFORMED: 1. Removal of hardware, L5-S1, right. 2. Lumbar microdiscectomy, reop, L5-S1, right. 3. Replacement of hardware with placement of larger pedicle screw, right S1. The operation was done with EMG monitoring, fluoroscopy, microscopic dissection. SURGEON: Santiago Sandhu M.D. [employer] VICE PRESIDENT: Bianca Lopez APRN OPERATIVE INDICATIONS: The patient is a pleasant 52-year-old woman who about a week ago underwent a lumbar microdecompression and instrumented lumbar fusion and did well. She had done very well for a few days and then began developing right leg pain, which became excruciatingly severe and she was admitted for further evaluation. On a new MRI scan, a focal disc herniation was seen now which extends inferiorly from the L5-S1 disc space and is compressing the right S1 root. I recommended lumbar microsurgery to remove the new disc herniation, decompress the right S1 nerve root. She understood the rationale for surgery and the risks. She strongly wished to go ahead. DESCRIPTION OF THE PROCEDURE: Following general endotracheal anesthesia, the patient was positioned prone on the Caleb table. Her lumbar region was prepped and draped in a standard fashion. CARLO hose and AV impulse boots were applied for DVT prophylaxis. A microscope was draped. Fluoroscopy was draped and brought into the field. Antibiotics were given. Her previous incision was reopened and dissection was carried down to skin and subcutaneous tissue. The hardware on the right side was exposed and was removed. The microscope was brought in during this time and self-retaining retractors were placed. I visualized the dura at L5-S1 on the right side. Working inferiorly, I removed further scar as I enlarged the foraminotomy inferiorly. I then gently dissected along the root and beneath the root and working medially through dense scar, I was able to visualize a focal disc fragment which I grasped with a lumbar micropituitary. During this time, I was gently holding the S1 root medially with the micro nerve root retractor. I gently freed up and teased and grasping the inferiorly placed disc fragment, pulled this fragment gently out which markedly decompressed the entire region. Once the disc fragment was removed, I reexplored the disc space and I assured myself that there was no other disc in proximity, which could further herniate and cause the recurrence of radicular symptoms. At this point, then I irrigated copiously and explored carefully. The root was very free. The root extending laterally was also free. I replaced the pedicle screws, which were Innovasis screws 6.5 mm diameter and felt that the screw in S1, although adequate, did not have strong purchase; I therefore placed a 7.5 screw without difficulty, attached this to the angelina and then torqued the assembly. I assured that the posterolateral bone fusion remained intact. I irrigated again copiously and I closed the wound in layers with absorbable sutures. The skin was closed with a 4-0 subcuticular stitch. The operation went very well and the patient was awakened uneventfully, taken to recovery room with a marked improvement in her right lower extremity pain. I was quite pleased with the surgery. SANTIAGO SANDHU MD DR: DUGLAS/ct JOB#: [id number] / [id number] YOLANDA
== END 2017-09-06 16:25 | disposition home or self-care (01) | DRG 520 ==
LOC: ER 09:41 → 4 NORTH 11:30
PROVIDERS: ADMIT Internal Medicine; ATTEND Internal Medicine
PROC: 0SW304Z Revision of Internal Fixation Device in Lumbosacral Joint, Open Approach (ICD-10-PCS; 2017-09-05)
PROC: 0SB40ZZ Excision of Lumbosacral Disc, Open Approach (ICD-10-PCS; principal; 2017-09-05 08:30)
DX: M51.16 Intervertebral disc disorders with radiculopathy, lumbar region (principal); G62.9 Polyneuropathy, unspecified; G89.18 Other acute postprocedural pain; K59.00 Constipation, unspecified; G89.29 Other chronic pain; Z88.2 Allergy status to sulfonamides; Z88.8 Allergy status to other drugs, medicaments and biological substances; T40.605A Adverse effect of unspecified narcotics, initial encounter; Y92.89 Other specified places as the place of occurrence of the external cause; M21.371 Foot drop, right foot; M51.17 Intervertebral disc disorders with radiculopathy, lumbosacral region
CPT/HCPCS: 36415; 72131; 72148; 76000; 80048; 80076; 81001; 82553; 83735; 85007; 85025; 85610; 87086; 87186; 88304; 93971; 96374; 96376; C1713; J1100; J1170; J1885; J2250; J2405; J2550; J2704; J3010; J3370; J3490; J7030; 97116; 99285-25; J2001